=== PATIENT | male | born 1945 | race Caucasian/White ===

== ENCOUNTER 2019-12-08 03:07 | Inpatient (IN) | payer MEDICARE, OTHER ==
[~2019-12-08] VITALS: Ht 188 cm; Wt 111.8 kg
[2019-12-08] VITALS (19 sets, daily range): BP systolic 95–137; BP diastolic 38–66
[2019-12-08] MEDS ORDERED: IV NORMAL SALINE 1,000ML 2,460 ML IV SCH (03:37)
[2019-12-08] MEDS ORDERED: IPRATRPIUM/ALBUTEROL 0.5/2.5MG 3 ML NEBU. NEB ONE (03:45)
[2019-12-08] MEDS ORDERED: VANCOMYCIN PER PHARMACY MC PRN (03:45)
--- NOTE | 2019-12-08 03:45 | PHYS DOC ---
Adult General Chief Complaint Chief Complaint: DYSPNEA/RESPIRATOY DISTRESS HPI HPI Patient is a [74-year-old male brought in by ambulance from the nursing facility with a chief complaint of shortness of air essentially patient is been feeling short of breath and weaker throughout the day today has been feeling feverish he has been coughing mostly dry he had a [facility]up [facility] chest x-ray showed a slight right lower lobe infiltrate white blood cell count was 15,000 creatinine was 1.4 hemoglobin was 10.3 the lactic acid on there lab work that was measured in milligrams per deciliter was 12.3 that that was in their normal range. Urinalysis showed 0-3 white blood cells patient was requiring oxygen which is a new finding for him so he was referred to the emergency room for evaluation of note influenza a and B PCR as well as RSV PCR were negative at 10:30 PM on December 07, 2019. Past medical history coronary artery bypass surgery 2 years ago at he says he has congestive heart failure but he does not know the details of that. I do not have a recent echocardiogram I have asked staff to get a record of that from the local hospital. 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 Medications pending Review of Systems Review of Systems Constitutional: Cardiovascular: No additional information not addressed in HPI [] GI Neurologic: Denies headache, focal weakness or sensory changes [] Endocrine: Denies polyuria or polydipsia [] All other systems were reviewed and found to be within normal limits, except as documented in this note. Allergies Allergies Allergies Coded Allergies Type Severity Reaction Last Updated Verified atorvastatin Adverse Reaction Intermediate 12/08/19 Yes Physical Exam Physical Exam Constitutional: Well developed, well nourished, mildly ill-appearing chronically ill-appearing. HENT: Normocephalic, atraumatic, bilateral external ears normal, oropharynx dry t, no oral exudates, nose normal. [] Eyes: PERRLA, EOMI, conjunctiva normal, no discharge. [] Neck: Normal range of motion, no tenderness, supple, no stridor. [] Cardiovascular:Heart rate regular rhythm, no definite murmur [] Lungs & Thorax: Patient has faint wheezing throughout both lung amezquita as well as some rhonchi at the right lung base Abdomen: Bowel sounds normal, soft, no tenderness, no masses, no pulsatile m asses. [] Skin: Warm, dry, no erythema, no rash. [] Back: No tenderness, no CVA tenderness. [] Extremities: 1-2+ edema bilaterally there is some mild erythema of the right anterior baltazar. There is a fairly well-healing surgical incision with wet-to-dry dressing and some granulation tissue noted on the first 2 digits where there was a recent amputation. No obvious severe cellulitis possible mild cellulitis of the right lower extremity no crepitus no bullae Neurologic: Alert and oriented X 3, normal motor function, normal sensory function, no focal deficits noted. [] Psychologic: Affect normal, judgement normal, mood normal. [] Current Patient Data Vital Signs Vital Signs Date Time Temp Pulse Resp B/P (MAP) Pulse Ox O2 Delivery O2 Flow Rate FiO2 12/08/19 03:10 98.5 76 30 93/50 (64) 89 Room Air Initially pulse 68, 89 room air when I saw him he was 91% on 2 L blood pressure 93/50 concerning for the beginnings of sepsis. Patient did seem to respond to IV fluids after 1 L the blood pressure was 103 systolic with a map of 73. I looked at his heart with a bedside echo he did appear to have normal to slightly below normal squeeze. Very difficult exam hard to get a great look but ejection fraction seemed adequate for IV fluid resuscitation. EKG EKG [] EKG shows a sinus rhythm rate of 68 no acute ischemic changes noted interpreted by me at the time of the encounter. Radiology/Procedures Radiology/Procedures [] Impressions: my read infiltrate right lung base. Course & Med Decision Making Course & Med Decision Making Pertinent Labs and Imaging studies reviewed. (See chart for details) [] 74-year-old male multiple medical problems COPD since CABG congestive heart failure hypertension diabetes recent amputation of the right lower extremity presenting with shortness of breath cough wheezing hypoxia found to have pneumonia with leukocytosis on chest x-ray. Patient be treated for sepsis at this time ideal body weight fluids were ordered for BMI greater than 30. IV Zosyn was ordered reflex lactate and blood cultures as well. I performed a sepsis reassessment after the first liter of fluids the patient had good capillary refill similar respiratory effort slightly increased but stable compared to previous. Noted the troponin and the BNP this is likely related to myocardial dysfunction in the setting of sepsis. Patient's EKG was essentially unremarkable. Has definite obvious chest x-ray evidence of pneumonia as well as a fever leukocytosis and a cough flu swab was negative. Creatinine is up to 1.8. At this point time we will treat the pneumonia and go from there. 5 AM, PT rhythm changed heart rate up to 123 bp 87/58 , repeat ekg shows afib with rvr rate 124. according to [facility] no known previous hx of afib. However on further questioning patient states that he did have A. fib while he was in the hospital at . He also said that he got taken off her blood thinner he does not recall the name of it but apparently he had 10 or more blood transfusions a couple months ago when he was in the hospital they did not know for sure where he was losing blood from. His blood thinner was discontinued. I did perform a rectal examination in the ER tonight the rectal exam showed brown stool sent to the lab for testing. Right as nurse was pulling the diltiazem before she could even put it in the syringe patient reverted back to sinus rhythm with a blood pressure of 110/42 he actually said he starting to feel better. d/w zeb at 520 am admit to [facility] Disclaimer [facility] Disclaimer This electronic medical record was generated, in whole or in part, using a voice recognition dictation system. Departure Departure: Impression: Primary Impression: Pneumonia Additional Impression: Atrial fibrillation with RVR Disposition: ADMITTED INPATIENT Admitting Physician: Oscar Deal Condition: GUARDED Referrals: SOLOMON CLINE DO (PCP) Sepsis Assessment: Date and Time of Assessment Date: Dec 08, 2019 Time: 04:50 Vital Signs Vital Signs Vital Signs Date Time Temp Pulse Resp B/P (MAP) Pulse Ox O2 Delivery O2 Flow Rate FiO2 12/08/19 03:52 92 Nasal Cannula 3.0 12/08/19 03:10 98.5 76 30 93/50 (64) Respirations Respiratory Effort: Labored Respiratory Pattern: Tachypnea Cardiovascular Pulse Rhythm: Regular HEART: Nml rate, reg. rhythm Lung Sounds Breath Sounds: Rhochi Capillary Refill Capillary Refill: Rt Hand < 3 seconds Peripheral Pulse Pulse Location: Radial Pulse Strength: Normal (2+) Pulse Assessment Method: Monitor Integumentary Skin: Warm, Dry Skin Color: warm, dry Problem Qualifiers LIANNE KELLER MD Dec 08, 2019 03:45
[2019-12-08] MEDS ORDERED: PIPERACILLIN/TAZOBACTAM 4.5 GM in IV NORMAL SALINE 100ML 100 ML IV ONE (04:00)
--- NOTE | 2019-12-08 04:05 | EKG ---
[address] [address] Test Date: 2019-12-08 Test Time: 03:18:32 Pat Name: LORI BUSTOS Department: Room: Gender: M Sanitation Supervisor: : 1945 Requested By: LIANNE KELLER Order Number: [id number] Reading MD: Kaveh Thurman MD Measurements Intervals [place] Rate: 68 P: 59 MD: 224 QRS: 46 QRSD: 78 T: 74 QT: 458 QTc: 487 Interpretive Statements SINUS RHYTHM 1ST DEGREE AVB Electronically Signed On 12-08-2019 16:05:49 CDT by Kaveh Thurman MD
--- NOTE | 2019-12-08 04:06 | RAD ---
AP chest. HISTORY: Fever AP view was taken of the chest. Heart is upper normal in size with evidence of prior bypass. There are possible mild hazy infiltrate in the right lung base. PA and lateral views would be of benefit for better evaluation. IMPRESSION: 1. Mild hazy atelectasis or infiltrate right lung base. PA and lateral views of benefit for a better evaluation. Electronically signed by: Navid Sosa MD (12/08/2019 4:03 AM) [id number]
[2019-12-08] MEDS ORDERED: PIPERACILLIN/TAZOBACTAM 4.5 GM VIAL IV ONE ×2 (04:13→04:18)
[2019-12-08] MEDS ORDERED: IV NORMAL SALINE 100ML 100 ML ONE ×2 (04:13→04:18)
[2019-12-08 04:19] LABS: BASO % 0 % (0-3); EOS % 0 % (0-3); HEMATOCRIT 31.3 % (39.0-53.0); HEMOGLOBIN 9.9 g/dL (13.0-17.5); LYMPH # 2.4 x10^3/uL (1.0-4.8); LYMPH % 18 % (24-48); MEAN CORPUSCULAR HEMOGLOBIN 28 pg (25-35); MEAN CORPUSCULAR HGB CONC 32 g/dL (31-37); MEAN CORPUSCULAR VOLUME 88 fL (79-100); MONO # 1.2 x10^3/uL (0.0-1.1); MONO % 9 % (0-9); NEUT # 9.9 x10^3uL (1.8-7.7); NEUT % 73 % (31-73); PLATELET COUNT 229 x10^3/uL (140-400); RED BLOOD COUNT 3.55 x10^6/uL (4.30-5.70); RED CELL DISTRIBUTION WIDTH 16.6 % (11.5-14.5); WHITE BLOOD COUNT 13.5 x10^3/uL (4.0-11.0)
[2019-12-08 04:24] LABS: CALCIUM 7.6 mg/dL (8.5-10.1); CREATININE 1.8 mg/dL (0.7-1.3); GFR 37.1; POTASSIUM 3.8 mmol/L (3.5-5.1)
[2019-12-08] MEDS ORDERED: VANCOMYCIN 2 GM in IV NORMAL SALINE 500ML 500 ML IV ONE (04:30)
[2019-12-08] MEDS ORDERED: IV NORMAL SALINE 1,000ML 1,000 ML IV SCH (04:30)
[2019-12-08 04:39] LABS: ALBUMIN 2.4 g/dL (3.4-5.0); ALBUMIN/GLOBULIN RATIO 0.5 (1.0-1.7); TOTAL PROTEIN 6.9 g/dL (6.4-8.2)
[2019-12-08] MEDS ORDERED: DEXTROSE 50% 25 GM / 50ML DISP.SYRIN. IV ONE (04:45)
[2019-12-08] MEDS ORDERED: IV DEXTROSE 5 %-0.45 % NACL 1,000 ML IV ONE (04:45)
[2019-12-08] MEDS ORDERED: ASPIRIN 81 MG TAB.CHEW PO ONE (05:00)
[2019-12-08] MEDS ORDERED: APIXABAN 5 MG TABLET. PO STA (05:03)
[2019-12-08] MEDS ORDERED: dilTIAZem 25 MG/5 ML VIAL IVP ONE (05:15)
[2019-12-08] MEDS ORDERED: CALCIUM GLUCONATE 1,000 MG/10 ML VIAL IV ONE (05:15)
[2019-12-08] MEDS ORDERED: ACETAMINOPHEN 325 MG TABLET PO ONE (05:15)
[2019-12-08 05:40] LABS: FECAL OB PT POSITIVE (NEG)
[2019-12-08] MEDS ORDERED: POTA20TA4 PO (05:44)
[2019-12-08] MEDS ORDERED: INSU100I13 SQ (05:44)
[2019-12-08] MEDS ORDERED: ROSUVASTATIN CA10 MG PO (05:44)
[2019-12-08] MEDS ORDERED: ACET325T9 PO (05:44)
[2019-12-08] MEDS ORDERED: IPRA3AMP29 NEB (05:44)
[2019-12-08] MEDS ORDERED: ASPI-630 PO (05:44)
[2019-12-08] MEDS ORDERED: TIOTROPIUM INH (05:44)
[2019-12-08] MEDS ORDERED: GLIP5TAB10 PO (05:44)
[2019-12-08] MEDS ORDERED: FURO40TA4 PO (05:44)
[2019-12-08] MEDS ORDERED: CHOL200078 PO (05:44)
[2019-12-08] MEDS ORDERED: GABA600T7 PO (05:44)
[2019-12-08] MEDS ORDERED: BUDE10.27 IH (05:44)
[2019-12-08] MEDS ORDERED: IBUP-1673 PO (05:44)
[2019-12-08] MEDS ORDERED: FERR325T14 PO (05:44)
[2019-12-08] MEDS ORDERED: PANT40TA3 PO (05:44)
[2019-12-08] MEDS ORDERED: DOXY100C2 PO (05:44)
[2019-12-08] MEDS ORDERED: METO50TA6 PO (05:44)
[2019-12-08] MEDS ORDERED: IV NORMAL SALINE 500ML 500 ML ONE (06:35)
[2019-12-08] MEDS ORDERED: VANCOMYCIN 1 GM VIAL. ONE (06:36)
--- NOTE | 2019-12-08 07:30 | NUR ---
Pharmacy Vancomycin Dosing Note S:Consulted to monitor and dose vancomycin started 12/08/19. O:JULILORI is a 74 year old M with Pneumonia, . Height: 6 feet, 2 inches Weight: 111.5 kg [place] Body Weight: 82.20 Adjusted Body Weight: 93.92 Dosing Weight: Actual Other Antibiotics: ZOSYN IN ED LABS: Last BUN: 17 Last Creatinine: 1.8 Creatinine Clearance: 47.8 Last WBC: 13.5 Last Procalcitonin: Tmax (past 24 hours): Microbiology: I/O: Drug Levels: Last level: on at Last dose given at Vancomycin Dosing: Loading Dose: 2000 mg x1 Dosing Weight: Actual Target Trough: 15-20 A: Based on: PHYSICIAN REQUEST FOR PHARMACY TO DOSE P: 1. Begin Vancomycin 2000MG LOADING AND 1750 mg IV q24h 2. Follow up Trough level on 12/10/19 at 0630 3. Pharmacy will continue to monitor, follow and adjust therapy as needed. RADHA MALDONADO, 12/08/19 0730
[2019-12-08] MEDS ORDERED: PIP/TAZO PER PHARMACY MC PRN (08:45)
[2019-12-08] MEDS ORDERED: ONDANSETRON PF 4 MG/2 ML VIAL. IVP PRN (09:00)
[2019-12-08] MEDS: IPRATRPIUM/ALBUTEROL 0.5/2.5MG 3 ML NEBU. NEB SCH ×4 (09:30→20:58)
--- NOTE | 2019-12-08 11:35 | NUR ---
Patient was admitted from ED to ICU bed 1 at shift change this morning. Pt wound pictures were done along with admission. Pt SR mostly, occasionally flips in to afib in the 120s but converts back to SR on his own. Pt resting comfortably in bed. Refused breakfast.
[2019-12-08] MEDS: PIPERACILLIN/TAZOBACTAM 4.5 GM in IV NORMAL SALINE 50ML 50 ML IV SCH ×2 (13:02→19:51)
[2019-12-08] MEDS ORDERED: FUROSEMIDE 40 MG/4 ML VIAL IVP ONE (15:00)
[2019-12-08] MEDS ORDERED: DIGOXIN IV 500 MCG/2 ML AMPUL. IV ONE (15:15)
--- NOTE | 2019-12-08 15:30 | HP ---
ADMIT DATE: 12/08/2019 HISTORY OF PRESENT ILLNESS: The patient is a 74-year-old male patient, a resident at [facility], who was brought by ambulance this nursing facility with chief complaint of shortness of air. Essentially, the patient has been feeling short of breath and weaker throughout the day. He also had a fever and cough, mostly dry. He had workup already at [facility], has a chest x-ray, which showed that he has right lower lobe infiltrate. His white cell count was high at 15,000. Creatinine was 1.4. Hemoglobin was 10.3 and lactic acid on the lab work was measured in mg/dL, which is 12.3 that was in normal range. His urinalysis was unremarkable and he was requiring oxygen, which is a new finding for him, so he was referred to the Emergency Room for evaluation. His influenza B and respiratory syncytial virus by PCR was negative on 12/07/2019. He was evaluated and apparently was found to have pneumonia. He was also in atrial fibrillation with RVR. He was started on IV Zosyn and vancomycin and was admitted for further evaluation and treatment. He did receive a total of 2460 mL of normal saline as well as sepsis protocol and was treated with IV Zosyn and vancomycin and was started also on apixaban, was given 10 mg of diltiazem as a loading dose and was admitted to the ICU for further evaluation and treatment. When I questioned him, he denied any chest pain, but did complain obviously of shortness of breath and cough, which is mostly dry. Did complain of fever, although his temperature throughout stay in the Emergency Room, was only 98.7. PAST MEDICAL HISTORY: Significant for hypertension, hyperlipidemia, vitamin D deficiency, chronic obstructive pulmonary disease, iron deficiency anemia, chronic kidney disease stage 3, has also type 2 diabetes mellitus with diabetic peripheral neuropathy. PAST SURGICAL HISTORY: Significant for coronary artery bypass graft surgery, partial colectomy for colon cancer. He has also amputation of his toes of his right foot. FAMILY HISTORY: He has no brothers and sisters. His father at the age of 80 because of complication of bladder cancer. Mother at the age of 94 because of old age. She has beaten cancer twice according to him. SOCIAL HISTORY: He is , lives alone. He has no children. He is a former smoker, smoked for 50 years and smoked about 1.5-2 packs a day, quit 6 years ago. He does not drink alcohol or use recreational drugs. 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 REVIEW OF SYSTEMS: The patient stated that he has bilateral cataracts that did not require any surgical treatment, but has no diabetic retinopathy. Denied any earache, tinnitus or sensorineural deafness. Denied any nosebleeds, stuffy nose or postnasal drip. Denied any sore throat, sore tongue, toothache, hoarseness of voice or difficulty swallowing. Denied any nausea, vomiting, diarrhea or constipation. Denied any hematemesis, melena or hematochezia. Denied any dysuria, frequency or hematuria. Denied any chest pain. Did complain of shortness of breath and cough that is mostly dry. Did have fever and his temperature was up to 100.8 at the [facility]. PHYSICAL EXAMINATION: GENERAL: On arrival to the Emergency Room, there was no pallor, jaundice, cyanosis or thyromegaly. No jugular venous distention. No lower limb edema. VITAL SIGNS: His heart rate was 76, blood pressure was 93/50, temperature was 98.5, respiratory rate was 30 and oxygen saturation was 89% on room air. HEAD, EYES, EARS, NOSE AND THROAT: Showed normocephalic, atraumatic. NECK: Supple. HEART: Showed normal first and second heart sounds. No gallop or murmur. CHEST: Showed central trachea, equal bilateral expansion, air entry, vesicular breath sounds. He has crepitation mostly on the right side posteriorly. Scattered rhonchi. ABDOMEN: Distended, soft, nontender. No guarding or rigidity. No organomegaly. All hernial orifice intact. Bowel sounds normal. NEUROLOGIC: He is awake, alert, responding appropriately. All cranial nerves intact. EXTREMITIES: He moves upper extremities without difficulty. He has wounds on his right lower extremity covered with dressing. LABORATORY DATA: Showed a white cell count 13,500, hemoglobin 9.9, hematocrit 31, MCV 88 and platelet count 229,000. His chemistry showed a serum sodium 138, potassium 3.8, chloride 104, bicarbonate 21, anion gap of 13, BUN 17, creatinine 1.8, estimated GFR was 37 mL per minute. His glucose was 67, calcium was 7.6. Total bilirubin, AST, ALT were normal. Alkaline phosphatase was elevated. His beta natriuretic peptide was 6478. Total protein was 6.9, albumin was 3.4. His stool for occult blood was positive. His chest x-ray showed that the patient has mild hazy atelectasis or infiltrate in the right lung base and PA and lateral view of benefit for better evaluation, so the patient was treated with IV fluid for sepsis protocol, although his lactic acid was only 1.3. His troponin was also elevated at 0.104 ng/mL. He was given a total of almost 2.5 liters of fluid, received Zosyn and vancomycin as well as aspirin and apixaban together with calcium gluconate and a loading dose of diltiazem. MEDICATIONS: He is currently on following medications: He is on aspirin enteric coated 81 mg once a day. He is on Symbicort 80/4.5 two puffs twice a day, doxycycline 100 mg twice a day, ferrous sulfate 325 mg 2 times a day, furosemide 40 mg once a day. Gabapentin 300 mg, takes 2 capsules 3 times a day. Glipizide 5 mg, she takes half a tablet by mouth one time a day. Ibuprofen 400 mg every 6 hours. He is on Lantus insulin 20 units at bedtime, ipratropium bromide, albuterol sulfate 0.5-2.5 mg 3 mL by nebulizer every 4 hours. He is on metoprolol tartrate 50 mg twice a day, potassium chloride 20 mEq once a day, Protonix delayed release 40 mg once a day. He is on Crestor 10 mg at bedtime, ipratropium bromide 2 puffs once a day, Tylenol 650 mg every 4 hours as needed, vitamin D 1000 International Unit once a day. By the time he arrived to the ICU apparently he became very short of breath and we did discontinue his IV fluid. I discontinued his vancomycin and switched him to Zyvox. Given his impaired kidney function, we will treat him with IV Lasix and also add digoxin. We have consulted the dye machine tender. We will also arrange for him to have a 12-lead EKG. I also ordered x-ray of his right foot to make sure that there is no evidence of any infection in his bones . ROSELYN MARRERO MD DR: LEEANNA/maximino JOB#: [id number] / [id number]
--- NOTE | 2019-12-08 15:33 | NUR ---
Dr Deal wanted byrnes catheter placed, pt refused. Dr Deal notified, asked this RN to bladder scan pt. Bladder scan revealed 250 mL in bladder. Pt then voided 200 mL
--- NOTE | 2019-12-08 15:56 | RAD ---
Examination: FOOT RIGHT 2V History: Infected wound with possible osteomyelitis Comparison/Correlation: None Findings: AP and lateral views of the right foot were obtained by portable technique. Small calcaneal spur is present. Vascular calcifications are present. Amputation of the fourth and fifth digits is noted. Amputation of the distal one half of the fourth metatarsal bone and the distal three fourths of the fifth metatarsal bone noted. Within the amputation site, jameel are present. Punctate hyperdensities which may represent wound packing material is present. Impression: No bony destruction. Consider further evaluation with three-phase bone scintigraphy if osteomyelitis is persistent concern. Electronically signed by: Enio Greenfield MD (12/08/2019 3:53 PM) [id number]
[2019-12-08] MEDS ORDERED: AMIODARONE 150 MG in IV DEXTROSE 5% 100 ML IVP ONE (17:00)
--- NOTE | 2019-12-08 17:53 | EKG ---
[address] [address] Test Date: 2019-12-08 Test Time: 15:31:40 Pat Name: LORI BUSTOS Department: Room: [facility] 1 Gender: M [employer] Supervisor: : 1945 Requested By: ROSELYN MARRERO Order Number: [id number] Reading MD: Measurements Intervals [place] Rate: 116 P: HI: QRS: 64 QRSD: 74 T: 77 QT: 330 QTc: 458 Interpretive Statements ACCELERATED JUNCTIONAL RHYTHM LOW LIMB LEAD VOLTAGE ABNORMAL ECG RI6.02 No previous ECG available for comparison
[2019-12-08] MEDS: LACTOBACILLUS RHAMNOSUS GG 1 CAPSULE. PO SCH (20:39)
[2019-12-08] MEDS: AMIODARONE HCL 200 MG TABLET PO SCH (20:40)
--- NOTE | 2019-12-08 23:15 | PDOC2 ---
CARDIAC CONSULT DATE OF CONSULT Date Of Consult DATE: 12/08/19 TIME: 23:11 REASON FOR CONSULT Reason for Consult arrhythmia, HF REFERRING PHYSICIAN Referring Physician Say SOURCE Source: Patient HPI History of Present Illness 74 y.o male recently discharged from after R leg toe amp presented to the hospital with dyspnea. He had a normal echo at [facility] in Oct. Cardiology called now to rule out afib and heart failure He denies any angina, but does have cough and dyspnea. No syncope or palpitations. PAST MEDICAL HISTORY Cardiovascular: CAD, CHF, HTN, NH, hyperipidemia Pulmonary: COPD Endocrine: Diabetes PAST SURGICAL HISTORY Past Surgical History: CABG FAMILY HISTORY Family History NC SOCIAL HISTORY Smoke: No ALCOHOL: none Drugs: None Lives: Alone CURRENT MEDICATIONS Current Medications Current Medications Piperacillin Sod/ Tazobactam Sod 4.5 gm/Sodium Chloride 100 ml @ 200 mls/hr 1X ONCE IV Last administered on 12/08/19at 04:35; Start 12/08/19 at 04:00; Stop 12/08/19 at 04:29; Status DC Sodium Chloride 2,460 ml @ 2,460 mls/hr Q1H IV Last administered on 12/08/19at 04:04; Start 12/08/19 at 03:37; Stop 12/08/19 at 04:19; Status DC Vancomycin HCl (Vanco Per Pharmacy) 1 each PRN DAILY PRN MC SEE COMMENTS Last administered on 12/08/19at 07:30; Start 12/08/19 at 03:45; Stop 12/08/19 at 14:12; Status DC Albuterol/ Ipratropium (Duoneb) 3 ml 1X ONCE NEB Last administered on 12/08/19at 04:04; Start 12/08/19 at 03:45; Stop 12/08/19 at 04:19; Status DC Piperacillin Sod/ Tazobactam Sod (Zosyn) 4.5 gm STK-MED ONCE IV ; Start 12/08/19 at 04:13; Stop 12/08/19 at 04:13; Status DC Sodium Chloride 100 ml @ As Directed STK-MED ONCE .ROUTE ; Start 12/08/19 at 04:13; Stop 12/08/19 at 04:13; Status DC Piperacillin Sod/ Tazobactam Sod (Zosyn) 4.5 gm STK-MED ONCE IV ; Start 12/08/19 at 04:18; Stop 12/08/19 at 04:19; Status DC Sodium Chloride 100 ml @ As Directed STK-MED ONCE .ROUTE ; Start 12/08/19 at 04:18; Stop 12/08/19 at 04:19; Status DC Sodium Chloride 1,000 ml @ 2,460 mls/hr Q25M IV ; Start 12/08/19 at 04:30; Stop 12/08/19 at 04:37; Status DC Vancomycin HCl 2 gm/Sodium Chloride 500 ml @ 250 mls/hr 1X ONCE IV Last administered on 12/08/19at 07:16; Start 12/08/19 at 04:30; Stop 12/08/19 at 14:09; Status DC Dextrose/Sodium Chloride 1,000 ml @ 75 mls/hr 1X ONCE IV Last administered on 12/08/19at 05:16; Start 12/08/19 at 04:45; Stop 12/08/19 at 08:37; Status DC Dextrose (Dextrose 50%-Water Syringe) 25 gm 1X ONCE IV Last administered on 12/08/19at 04:45; Start 12/08/19 at 04:45; Stop 12/08/19 at 05:24; Status DC Aspirin (Children'S Aspirin) 324 mg 1X ONCE PO Last administered on 12/08/19at 05:00; Start 12/08/19 at 05:00; Stop 12/08/19 at 05:24; Status DC Acetaminophen (Tylenol) 650 mg 1X ONCE PO ; Start 12/08/19 at 05:15; Stop 12/08/19 at 05:24; Status DC Diltiazem HCl (Cardizem Iv Push) 10 mg 1X ONCE IVP ; Start 12/08/19 at 05:15; Stop 12/08/19 at 05:24; Status DC Apixaban (Eliquis) 10 mg 1X STAT PO ; Start 12/08/19 at 05:03; Stop 12/08/19 at 05:17; Status DC Calcium Gluconate 1,000 mg 1X ONCE IV Last administered on 12/08/19at 05:17; Start 12/08/19 at 05:15; Stop 12/08/19 at 05:24; Status DC Sodium Chloride 500 ml @ As Directed STK-MED ONCE .ROUTE ; Start 12/08/19 at 06:35; Stop 12/08/19 at 06:36; Status DC Vancomycin HCl (Vancomycin) 1 gm STK-MED ONCE .ROUTE ; Start 12/08/19 at 06:36; Stop 12/08/19 at 06:36; Status DC Vancomycin HCl 1.75 gm/Sodium Chloride 500 ml @ 250 mls/hr Q24H IV ; Start 12/09/19 at 07:00; Stop 12/08/19 at 14:09; Status DC Vancomycin HCl (Vancomycin Trough Level) 1 each 1X ONCE MC ; Start 12/10/19 at 06:30; Stop 12/08/19 at 14:10; Status DC Piperacillin Sod/ Tazobactam Sod (Zosyn Per Pharmacy) 1 each PRN DAILY PRN MC SEE COMMENTS; Start 12/08/19 at 08:45 Piperacillin Sod/ Tazobactam Sod 4.5 gm/Sodium Chloride 50 ml @ 100 mls/hr Q8H IV Last administered on 12/08/19at 19:51; Start 12/08/19 at 12:00 Ondansetron HCl (Zofran) 4 mg PRN Q8HRS PRN IVP NAUSEA/VOMITING; Start 12/08/19 at 09:00 Albuterol/ Ipratropium (Duoneb) 3 ml RTQID NEB Last administered on 12/08/19at 20:58; Start 12/08/19 at 09:00 Furosemide (Lasix) 40 mg 1X ONCE IVP Last administered on 12/08/19at 14:53; Start 12/08/19 at 15:00; Stop 12/08/19 at 15:01; Status DC Linezolid 300 ml @ 300 mls/hr Q12HR IV Last administered on 12/08/19at 20:40; Start 12/08/19 at 21:00 Digoxin (Lanoxin) 500 mcg 1X ONCE IV Last administered on 12/08/19at 14:53; Start 12/08/19 at 15:15; Stop 12/08/19 at 15:16; Status DC Lactobacillus Rhamnosus (Culturelle) 1 cap BID PO Last administered on 12/08/19at 20:39; Start 12/08/19 at 21:00 Amiodarone HCl 150 mg/Dextrose 103 ml @ 618 mls/hr 1X ONCE IVP Last administered on 12/08/19at 16:36; Start 12/08/19 at 17:00; Stop 12/08/19 at 17:09; Status DC Amiodarone HCl (Cordarone) 200 mg BID PO Last administered on 12/08/19at 20:40; Start 12/08/19 at 21:00 Active Scripts Active Reported Vitamin D3 (Cholecalciferol (Vitamin D3)) 2,000 Unit Tab.chew 2,000 Unit PO DAILY Tylenol (Acetaminophen) 325 Mg Tablet 650 Mg PO Q 6HRS PRN PRN [tiotropium brom mono] 2 Puff INH DAILY Rosuvastatin Calcium 10 Mg Tablet 10 Mg PO QHS Protonix (Pantoprazole Sodium) 40 Mg Tablet.dr 40 Mg PO DAILYAC Potassium Chloride (Potassium Chloride) 20 Meq Tablet.er 20 Meq PO DAILY Metoprolol Tartrate 50 Mg Tablet 50 Mg PO BID Duoneb 0.5-3(2.5) Mg/3 Ml (Albuterol/Ipratropium) 3 Ml Ampul.neb 3 Ml NEB Q4HRS Lantus Solostar (Insulin Glargine,Hum.rec.anlog) 100 Unit/1 Ml Insuln.pen 20 Unit SQ QHS Ibuprofen 200 Mg Tablet 200 Mg PO Q6HRS Glipizide 5 Mg Tablet 2.5 Mg PO DAILY Gabapentin 600 Mg Tablet 600 Mg PO TID Furosemide 40 Mg Tablet 40 Mg PO DAILY Ferrous Sulfate 325 Mg Tablet 325 Mg PO BID Doxycycline Hyclate 100 Mg Capsule 100 Mg PO BID 5 Days Budesonide-Formoterol 80-4.5 (Budesonide/Formoterol Fumarate) 10.2 Gm Hfa.aer.ad 10.2 Gm IH DAILY16 Aspirin 81 Mg Tab.chew 81 Mg PO DAILY ALLERGIES Allergies: Coded Allergies: atorvastatin (Verified Adverse Reaction, Intermediate, 12/08/19) generalized body aches ROS Review of Systems Negative for 07/12 systems reviewed unless noted above in HPI PHYSICAL EXAM General: Alert, Oriented X3, Cooperative HEENT: Atraumatic Lungs: Other (bilateral rhonchi) Heart: Regular rate Abdomen: Normal bowel sounds Extremities: No clubbing Skin: No rashes Neuro: Normal speech Psych/Mental Status: Mental status NL MUSCULOSKELETAL: No joint tenderness VITALS Vital Signs Vital Signs Date Time Temp Pulse Resp B/P (MAP) Pulse Ox O2 Delivery O2 Flow Rate FiO2 12/08/19 22:00 95 21 123/52 (75) 90 Nasal Cannula 3.0 12/08/19 20:59 98.3 LABS LABS Laboratory Tests Test 12/08/19 03:52 12/08/19 05:15 12/08/19 07:49 12/08/19 08:22 White Blood Count 13.5 x10^3/uL (4.0-11.0) Red Blood Count 3.55 x10^6/uL (4.30-5.70) Hemoglobin 9.9 g/dL (13.0-17.5) Hematocrit 31.3 % (39.0-53.0) Mean Corpuscular Volume 88 fL (79-100) Mean Corpuscular Hemoglobin 28 pg (25-35) Mean Corpuscular Hemoglobin Concent 32 g/dL (31-37) Red Cell Distribution Width 16.6 % (11.5-14.5) Platelet Count 229 x10^3/uL (140-400) Neutrophils (%) (Auto) 73 % (31-73) Lymphocytes (%) (Auto) 18 % (24-48) Monocytes (%) (Auto) 9 % (0-9) Eosinophils (%) (Auto) 0 % (0-3) Basophils (%) (Auto) 0 % (0-3) Neutrophils # (Auto) 9.9 x10^3uL (1.8-7.7) Lymphocytes # (Auto) 2.4 x10^3/uL (1.0-4.8) Monocytes # (Auto) 1.2 x10^3/uL (0.0-1.1) Eosinophils # (Auto) 0.0 x10^3/uL (0.0-0.7) Basophils # (Auto) 0.0 x10^3/uL (0.0-0.2) Sodium Level 138 mmol/L (136-145) Potassium Level 3.8 mmol/L (3.5-5.1) Chloride Level 104 mmol/L (98-107) Carbon Dioxide Level 21 mmol/L (21-32) Anion Gap 13 (6-14) Blood Urea Nitrogen 17 mg/dL (8-26) Creatinine 1.8 mg/dL (0.7-1.3) Estimated GFR (Cockcroft-Gault) 37.1 BUN/Creatinine Ratio 9 (6-20) Glucose Level 67 mg/dL (70-99) Lactic Acid Level 1.3 mmol/L (0.4-2.0) Calcium Level 7.6 mg/dL (8.5-10.1) Total Bilirubin 1.0 mg/dL (0.2-1.0) Aspartate Amino Transf (AST/SGOT) 32 U/L (15-37) Alanine Aminotransferase (ALT/SGPT) 14 U/L (16-63) Alkaline Phosphatase 130 U/L (46-116) Troponin I Quantitative 0.104 ng/mL (0-0.055) 0.079 ng/mL (0-0.055) GU-Hsp-U-Type Natriuretic Peptide 6478 pg/mL (0-124) Total Protein 6.9 g/dL (6.4-8.2) Albumin 2.4 g/dL (3.4-5.0) Albumin/Globulin Ratio 0.5 (1.0-1.7) Stool Occult Blood Positive (NEG) Glucose (Fingerstick) 70 mg/dL (70-99) Test 12/08/19 12:24 12/08/19 17:15 12/08/19 20:14 Glucose (Fingerstick) 92 mg/dL (70-99) 123 mg/dL (70-99) 96 mg/dL (70-99) IMAGES IMAGES Reviewed EKG EKG Reviewed ECHOCARDIOGRAM Echocardiogram Echo from [facility] reviewed. Normal EF ASSESSMENT/PLAN Assessment/Plan 1. Junctional tachycardia - No evidence of afib. 2. HTN 3. CAD s/p CABG 4. Resp failure possibly PNA and diastolic HF Plan for diuresis and initiation of amiodarone to help curtail the junctional rhythm/svt. Supportive care. thanks MARILYN CAGE MD Dec 08, 2019 23:15
[2019-12-08] MEDS: METOPROLOL TART IMMED RELEASE 25 MG TABLET PO SCH (23:28)
[2019-12-09] VITALS (20 sets, daily range): BP systolic 105–138; BP diastolic 35–85
[2019-12-09] MEDS: PIPERACILLIN/TAZOBACTAM 4.5 GM in IV NORMAL SALINE 50ML 50 ML IV SCH ×3 (03:43→19:22)
[2019-12-09] MEDS: IPRATRPIUM/ALBUTEROL 0.5/2.5MG 3 ML NEBU. NEB SCH ×4 (04:39→21:01)
--- NOTE | 2019-12-09 05:00 | NUR ---
Shift Note: Pt is a/o x4 (lethargic and weakness in bilateral LE), VSS (pt requires oxygen at 2 liters NC to maintain sats >92%), no c/o pain or n/v at this time, right foot dressing was changed during dayshift and remains CDI, Pt able to void in urinal, last BM 12/06, IV is saline locked other than for antibiotics as ordered.
[2019-12-09] MEDS ORDERED: VANCOMYCIN 1.75 GM in IV NORMAL SALINE 500ML 500 ML IV SCH (07:00)
[2019-12-09 07:57] LABS: BASO % 0 % (0-3); EOS # 0.3 x10^3/uL (0.0-0.7); EOS % 3 % (0-3); HEMATOCRIT 30.5 % (39.0-53.0); HEMOGLOBIN 9.6 g/dL (13.0-17.5); LYMPH # 1.2 x10^3/uL (1.0-4.8); LYMPH % 12 % (24-48); MEAN CORPUSCULAR HEMOGLOBIN 28 pg (25-35); MEAN CORPUSCULAR HGB CONC 32 g/dL (31-37); MEAN CORPUSCULAR VOLUME 88 fL (79-100); MONO # 1.2 x10^3/uL (0.0-1.1); MONO % 11 % (0-9); NEUT # 7.7 x10^3uL (1.8-7.7); NEUT % 74 % (31-73); PLATELET COUNT 205 x10^3/uL (140-400); RED BLOOD COUNT 3.48 x10^6/uL (4.30-5.70); RED CELL DISTRIBUTION WIDTH 16.2 % (11.5-14.5); WHITE BLOOD COUNT 10.4 x10^3/uL (4.0-11.0)
[2019-12-09 08:05] LABS: CALCIUM 7.7 mg/dL (8.5-10.1); CREATININE 1.7 mg/dL (0.7-1.3); GFR 39.6; POTASSIUM 3.8 mmol/L (3.5-5.1)
[2019-12-09] MEDS: LACTOBACILLUS RHAMNOSUS GG 1 CAPSULE. PO SCH ×2 (08:40→20:40)
[2019-12-09] MEDS: AMIODARONE HCL 200 MG TABLET PO SCH ×2 (08:41→20:40)
[2019-12-09] MEDS: METOPROLOL TART IMMED RELEASE 25 MG TABLET PO SCH ×2 (08:41→20:39)
--- NOTE | 2019-12-09 08:42 | NUR ---
Wound care Wound care consult for DFU's to right foot. Pt has DFU to right plantar great toe that is covered with dry slough, no signs of infection present. Dressed wound with xeroform and gauze. 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 There are several jameel present in thi-wound. Cleansed area and dressed with medihoney alginate, ABD and kerlix, recommend to change every 3 days. Pt was supposed to have follow up with Dr Bhatti, ortho surgeon at , tomorrow. RN stated she will call surgeon and let him know pt status. Pt has mild yeast rash to inner gluteal fold, applied nystatin powder mixed with calazime, RN will order nystatin powder if needed later today. No other wounds noted. Discussed possible follow up in [facility] if OK with surgeon and [place] wound nurse, who will have to send referral. WC will continue to follow for possible changes. Pt educated on PU prevention, pt verbalized he turns frequently and has WC cushion at [facility].
[2019-12-09] MEDS ORDERED: GABA600T7 PO (08:47)
--- NOTE | 2019-12-09 10:22 | PDOC ---
CARDIO Progress Notes Date & Time Date of Service DATE: 12/09/19 TIME: 10:18 Time of Evaluation 10:18 Subjective Notes still SOA this am Vitals Vitals Vital Signs Date Time Temp Pulse Resp B/P (MAP) Pulse Ox O2 Delivery O2 Flow Rate FiO2 12/09/19 08:41 78 109/63 12/09/19 08:02 Nasal Cannula 3.0 12/09/19 08:00 98.4 20 94 Weight Weight [ ] Input and Output I.O. Intake and Output 12/09/19 07:00 Intake Total 1960 ml Output Total 1000 ml Balance 960 ml Intake Oral 860 ml IV Total 1100 ml Output Urine Total 1000 ml # Voids 2 Laboratory Labs Laboratory Tests Test 12/08/19 03:52 12/08/19 05:15 12/08/19 07:49 12/08/19 08:22 White Blood Count 13.5 x10^3/uL (4.0-11.0) Red Blood Count 3.55 x10^6/uL (4.30-5.70) Hemoglobin 9.9 g/dL (13.0-17.5) Hematocrit 31.3 % (39.0-53.0) Mean Corpuscular Volume 88 fL (79-100) Mean Corpuscular Hemoglobin 28 pg (25-35) Mean Corpuscular Hemoglobin Concent 32 g/dL (31-37) Red Cell Distribution Width 16.6 % (11.5-14.5) Platelet Count 229 x10^3/uL (140-400) Neutrophils (%) (Auto) 73 % (31-73) Lymphocytes (%) (Auto) 18 % (24-48) Monocytes (%) (Auto) 9 % (0-9) Eosinophils (%) (Auto) 0 % (0-3) Basophils (%) (Auto) 0 % (0-3) Neutrophils # (Auto) 9.9 x10^3uL (1.8-7.7) Lymphocytes # (Auto) 2.4 x10^3/uL (1.0-4.8) Monocytes # (Auto) 1.2 x10^3/uL (0.0-1.1) Eosinophils # (Auto) 0.0 x10^3/uL (0.0-0.7) Basophils # (Auto) 0.0 x10^3/uL (0.0-0.2) Sodium Level 138 mmol/L (136-145) Potassium Level 3.8 mmol/L (3.5-5.1) Chloride Level 104 mmol/L (98-107) Carbon Dioxide Level 21 mmol/L (21-32) Anion Gap 13 (6-14) Blood Urea Nitrogen 17 mg/dL (8-26) Creatinine 1.8 mg/dL (0.7-1.3) Estimated GFR (Cockcroft-Gault) 37.1 BUN/Creatinine Ratio 9 (6-20) Glucose Level 67 mg/dL (70-99) Lactic Acid Level 1.3 mmol/L (0.4-2.0) Calcium Level 7.6 mg/dL (8.5-10.1) Total Bilirubin 1.0 mg/dL (0.2-1.0) Aspartate Amino Transf (AST/SGOT) 32 U/L (15-37) Alanine Aminotransferase (ALT/SGPT) 14 U/L (16-63) Alkaline Phosphatase 130 U/L (46-116) Troponin I Quantitative 0.104 ng/mL (0-0.055) 0.079 ng/mL (0-0.055) WV-Yfx-C-Type Natriuretic Peptide 6478 pg/mL (0-124) Total Protein 6.9 g/dL (6.4-8.2) Albumin 2.4 g/dL (3.4-5.0) Albumin/Globulin Ratio 0.5 (1.0-1.7) Stool Occult Blood Positive (NEG) Glucose (Fingerstick) 70 mg/dL (70-99) Test 12/08/19 12:24 12/08/19 17:15 12/08/19 20:14 12/09/19 07:49 Glucose (Fingerstick) 92 mg/dL (70-99) 123 mg/dL (70-99) 96 mg/dL (70-99) White Blood Count 10.4 x10^3/uL (4.0-11.0) Red Blood Count 3.48 x10^6/uL (4.30-5.70) Hemoglobin 9.6 g/dL (13.0-17.5) Hematocrit 30.5 % (39.0-53.0) Mean Corpuscular Volume 88 fL (79-100) Mean Corpuscular Hemoglobin 28 pg (25-35) Mean Corpuscular Hemoglobin Concent 32 g/dL (31-37) Red Cell Distribution Width 16.2 % (11.5-14.5) Platelet Count 205 x10^3/uL (140-400) Neutrophils (%) (Auto) 74 % (31-73) Lymphocytes (%) (Auto) 12 % (24-48) Monocytes (%) (Auto) 11 % (0-9) Eosinophils (%) (Auto) 3 % (0-3) Basophils (%) (Auto) 0 % (0-3) Neutrophils # (Auto) 7.7 x10^3uL (1.8-7.7) Lymphocytes # (Auto) 1.2 x10^3/uL (1.0-4.8) Monocytes # (Auto) 1.2 x10^3/uL (0.0-1.1) Eosinophils # (Auto) 0.3 x10^3/uL (0.0-0.7) Basophils # (Auto) 0.0 x10^3/uL (0.0-0.2) Sodium Level 136 mmol/L (136-145) Potassium Level 3.8 mmol/L (3.5-5.1) Chloride Level 104 mmol/L (98-107) Carbon Dioxide Level 22 mmol/L (21-32) Anion Gap 10 (6-14) Blood Urea Nitrogen 19 mg/dL (8-26) Creatinine 1.7 mg/dL (0.7-1.3) Estimated GFR (Cockcroft-Gault) 39.6 Glucose Level 99 mg/dL (70-99) Calcium Level 7.7 mg/dL (8.5-10.1) Microbiology Micro Microbiology 12/08/19 Blood Culture - Preliminary, Resulted NO GROWTH AFTER 1 DAY... Physical Exams HEENT: Neck Supple W Full Motion Chest: Symmetric Lungs: Other (diminished ) Heart: RRR (SR/ST with 1st AVB) Abdomen: Soft N/T Extremities: Other (trace bilateral LE edema, drsg intact to right foot ) Neurology: alert, oriented, follow commands Assessment Assessment 1. Junctional tachycardia - No evidence of afib. Amiodarone added for rhythm control. 2. Acute respiratory with with a/c diastolic CHF, AE COPD, and possible PNA. Echo at with preserved LV systolic function 3. Mild troponin elevation; peak 0.104. Most probably type II, demand ischemia secondary to above 3. CAD s/p CABG 4. Hypertension; controlled 5. Hyperlipidemia; statin 6. Diabetes, II 7. TITO vs CKD; Cr stable Recommendations Additional diuresis Continue Metoprolol, Amiodarone for rhythm, rate control Continue secondary prevention measures Supportive care APRIL JI APRN Dec 09, 2019 10:22
[2019-12-09] MEDS: FERROUS SULFATE 325 MG TABLET. PO SCH ×2 (10:30→20:39)
[2019-12-09] MEDS: glipiZIDE 5 MG TABLET PO SCH (10:30)
[2019-12-09] MEDS: ASPIRIN 81 MG TAB.CHEW PO SCH (10:30)
[2019-12-09] MEDS: CHOLECALCIFEROL (VITAMIN D3) 1,000 UNIT TABLET PO SCH (10:30)
[2019-12-09] MEDS: POTASSIUM CHLORIDE 20 MEQ TABLET.ER. PO SCH (10:30)
[2019-12-09] MEDS ORDERED: FUROSEMIDE 40 MG/4 ML VIAL IVP ONE (12:00)
[2019-12-09] MEDS ORDERED: POTASSIUM CHLORIDE 20 MEQ TABLET.ER. PO ONE (12:00)
[2019-12-09] MEDS ORDERED: IBUPROFEN 200 MG TABLET PO SCH ×2 (12:00)
--- NOTE | 2019-12-09 15:33 | NUR ---
Notified pt's orthopedic surgeon about wound care recommendations and to cancel pt's appointment with tomorrow 12/10/2019 per pt's request. Spoke with Bibi, surgeon's national secretary. Ennice stated she would notify of wound updates and care plans. [employer] also stated they would call back tomorrow, 12/10/2019. Will continue to monitor and assess as necessary.
--- NOTE | 2019-12-09 15:40 | NUR ---
Pt told staff this morning that he has had loose stool for the past 10 days. Ordered stat C.Difficile testing for loose stool. Specimen has been collected, now awaiting results.
[2019-12-09] MEDS: FUROSEMIDE 40 MG/4 ML VIAL IVP SCH (16:06)
--- NOTE | 2019-12-09 16:36 | PN ---
DATE: 12/09/2019 SUBJECTIVE: The patient is sitting at the edge of the bed, clearly tachypneic. Denied, however, any chest pain, denied any chills, rigors or fever. PHYSICAL EXAMINATION: GENERAL: When I examined him, he looked pale, no jaundice, cyanosis or thyromegaly. No jugular venous distention or limb edema. VITAL SIGNS: His heart rate was 83, blood pressure was 118/48, temperature was 98, respiratory rate 20, and oxygen saturation was 90% on 2 liters of oxygen. HEAD, EYES, EARS, NOSE AND THROAT: Showed normocephalic, atraumatic. NECK: Supple. HEART: Showed normal first and second heart sounds. No gallop, rub or murmur. CHEST: Shows central trachea, equal bilateral expansion, air entry, vesicular breath sounds with crepitation mostly in the right side posteriorly. I could not appreciate any rhonchi. ABDOMEN: Distended, soft, nontender. NEUROLOGIC: He is awake, alert, responding appropriately. All cranial nerves are intact. He moves extremities without difficulty though he is extremely short of breath on exertion. His intake over the last 24 hours was 1100, no output was recorded. LABORATORY DATA: As of this morning showed a serum sodium 136, potassium 3.8, chloride 104, bicarbonate 22, anion gap of 10, BUN 19, creatinine 1.7, estimated GFR was 39 mL per minute. His glucose was 99, calcium was 7.7. His white cell count was 10,400, hemoglobin 9.6, hematocrit 30.5, MCV 88 and platelet count 205,000. His stool for occult blood was positive. He apparently also having recurrent bouts of diarrhea, so stool will be sent for C. diff toxin. So far, his blood cultures showed no growth after one day. ASSESSMENT: 1. Junctional tachycardia, no evidence of atrial fibrillation. The patient was started on amiodarone for rhythm control. 2. Acute respiratory failure secondary to a) acute on chronic diastolic congestive heart failure, b) chronic obstructive pulmonary disease exacerbation. 3. Right lower lobe pneumonia. Apparently, his echocardiogram at [facility] showed preserved left ventricular systolic function. 4. Mild elevation of troponin peaked at 0.104. Most probably type 2 demand ischemia. 5. Coronary artery disease, status post coronary artery bypass graft. 6. Hypertension, well controlled. 7. Hyperlipidemia, on statins. 8. Type 2 diabetes mellitus, seems to be well controlled. 9. Acute versus chronic kidney disease. Creatinine showed slight improvement. PLAN: To continue with IV antibiotic. Continue with IV Lasix. ROSELYN MARRERO MD DR: LEEANNA/maximino JOB#: [id number] / [id number]
--- NOTE | 2019-12-09 16:58 | NUR ---
Pt SOB when ambulating to bedside commode. Educated pt on the possibility of placing a catheter. Pt denied byrnes catheter placement stating that "they hurt and they are uncomfortable." Will continue to monitor and assess as necessary.
--- NOTE | 2019-12-09 18:03 | RAD ---
BONE SCAN 3 PHASE Clinical Indication: Right foot pain. Surgery 8 weeks ago to remove fourth and fifth toes. Comparison: Right foot, 2 views, prior day. TECHNIQUE: Patient is injected with 20 mCi of technetium 99m MDP. 6 second per frame angiographic phase images of the feet acquired. Plantar blood pool images then obtained. Plantar and right and left lateral static images acquired after routine delay. Findings: There is hyperemia of the right midfoot on angiographic images. There is persistent increased tracer uptake in this location on the immediate static likely localizing to the second and third metatarsal region. There is persistent uptake in this location on the delay image. There is also increased tracer uptake of the lateral midfoot. IMPRESSION: 1. There is increased tracer uptake on all 3 phases of the central right mid foot likely in the region of the second and third metatarsals. Findings suspicious for osteomyelitis. 2. There is increased tracer uptake only on the delay phase localizing to the residual fourth and fifth metatarsals. This uptake may be postsurgical. Electronically signed by: Leonard Lassiter MD (12/09/2019 6:00 PM) [id number]
[2019-12-09] MEDS: GABAPENTIN 300 MG CAPSULE. PO SCH (20:39)
[2019-12-09] MEDS: LINEZOLID 600 MG TABLET PO SCH (20:41)
[2019-12-09] MEDS ORDERED: ATORVASTATIN CALCIUM 20 MG TABLET PO SCH (21:00)
[2019-12-10] VITALS (20 sets, daily range): BP systolic 94–145; BP diastolic 37–77
[2019-12-10] MEDS: PIPERACILLIN/TAZOBACTAM 4.5 GM in IV NORMAL SALINE 50ML 50 ML IV SCH ×3 (04:37→20:01)
[2019-12-10] MEDS: IPRATRPIUM/ALBUTEROL 0.5/2.5MG 3 ML NEBU. NEB SCH ×4 (05:00→20:29)
--- NOTE | 2019-12-10 06:07 | NUR ---
Shift Note: Pt is a/ox4, VSS, pt requires 4 liters O2, increased SOA w/activity, pt had no loose stools over the night, CDiff did come back positive, physician notified, orders placed. Pt is allergic to lipitor but was ordered (will have dayshift discuss w/physician). Addendum: 12/10/19 at 0615 by ESTHER YUEN RN Shift Note: Pt is a/ox4, HR is elevated this am (Metoprolol given early, will monitor), pt requires 4 liters O2, increased SOA w/activity, pt had no loose stools over the night, CDiff did come back positive (contact plus isolation initiated), physician notified, orders placed. Pt is allergic to lipitor but was ordered (will have dayshift discuss w/physician).
[2019-12-10] MEDS: METOPROLOL TART IMMED RELEASE 25 MG TABLET PO SCH ×2 (06:12→20:50)
[2019-12-10 06:23] LABS: HEMATOCRIT 32.1 % (39.0-53.0); HEMOGLOBIN 10.1 g/dL (13.0-17.5); RED BLOOD COUNT 3.65 x10^6/uL (4.30-5.70); RED CELL DISTRIBUTION WIDTH 16.1 % (11.5-14.5); WHITE BLOOD COUNT 12.6 x10^3/uL (4.0-11.0)
[2019-12-10 06:35] LABS: ALBUMIN/GLOBULIN RATIO 0.4 (1.0-1.7); CALCIUM 7.9 mg/dL (8.5-10.1); CREATININE 1.7 mg/dL (0.7-1.3); GFR 39.6; POTASSIUM 3.6 mmol/L (3.5-5.1); TOTAL BILIRUBIN 0.9 mg/dL (0.2-1.0); TOTAL PROTEIN 6.7 g/dL (6.4-8.2)
[2019-12-10] MEDS: LACTOBACILLUS RHAMNOSUS GG 1 CAPSULE. PO SCH ×2 (07:56→20:50)
[2019-12-10] MEDS: AMIODARONE HCL 200 MG TABLET PO SCH ×2 (07:56→20:50)
[2019-12-10] MEDS: ASPIRIN 81 MG TAB.CHEW PO SCH (07:57)
[2019-12-10] MEDS: CHOLECALCIFEROL (VITAMIN D3) 1,000 UNIT TABLET PO SCH (07:57)
[2019-12-10] MEDS: glipiZIDE 5 MG TABLET PO SCH (07:57)
[2019-12-10] MEDS: GABAPENTIN 300 MG CAPSULE. PO SCH ×3 (07:57→20:51)
[2019-12-10] MEDS: LINEZOLID 600 MG TABLET PO SCH ×2 (07:58→20:51)
[2019-12-10] MEDS: VANCOMYCIN 125 MG/2.5 ML ORAL SOLUTION. PO SCH ×4 (07:58→20:51)
[2019-12-10] MEDS: POTASSIUM CHLORIDE 20 MEQ TABLET.ER. PO SCH (07:58)
[2019-12-10] MEDS: FERROUS SULFATE 325 MG TABLET. PO SCH ×2 (07:59→20:51)
[2019-12-10] MEDS: FUROSEMIDE 40 MG/4 ML VIAL IVP SCH (08:00)
--- NOTE | 2019-12-10 14:46 | PN ---
DATE: 12/10/2019 SUBJECTIVE: The patient is resting, slightly propped up in bed, in no apparent distress. He is definitely much improved today. He is not huffing and puffing, states that he has slept very well overnight. He did have multiple loose bowel movements yesterday and his stool came back positive for C. diff, has not had any bowel movement today. The patient is unhappy that the dressing changes done every other day as his orthopedic surgeon removed the wound VAC and wanted his wound to be dressed twice a day. PHYSICAL EXAMINATION: GENERAL: When I examined him today, he looked pale, but no jaundice, cyanosis or thyromegaly. No jugular venous distention. No limb edema. VITAL SIGNS: His heart rate was 69, blood pressure was 110/37. His temperature was 98.1, respiratory rate was 16, and oxygen saturation was 94% on 4 liters of oxygen. HEAD, EYES, EARS, NOSE AND THROAT: Showed normocephalic, atraumatic. NECK: Supple. HEART: Showed normal first and second heart sounds. No gallop or murmur. CHEST: Clear to auscultation. No crepitation or rhonchi. ABDOMEN: Distended, soft, nontender. No guarding or rigidity. No organomegaly. All hernial orifice intact. Bowel sounds normal. NEUROLOGIC: He was definitely more awake, alert, responding appropriately. All cranial nerves are intact. He moves extremities without difficulty. Right foot wound is open with necrotic tissue, covered with dressing. His intake over the last 24 hours was 2000, output was 1000. LABORATORY DATA: As of this morning, his white cell count was 12,600, hemoglobin 10, hematocrit 32, MCV 88 and platelet count 232,000. His serum sodium was 138, potassium 3.6, chloride 102, bicarbonate 25, anion gap of 11, BUN 20, creatinine 1.7, estimated GFR was 39 mL per minute, his glucose was 82, calcium was 7.9. Total bilirubin, AST, ALT, alkaline phosphatase were normal. Total protein was 6.7, albumin was 2. His stool for occult blood was positive; however, his stool for Clostridium diff toxins also positive. So far, his blood culture had shown no growth after 2 days. We did actually order a bone scan yesterday, which showed that there is increased tracer uptake in all 3 phases of the central right mid foot, likely in the region of the second and third metatarsal. Findings are suspicious for osteomyelitis. There is increased tracer uptake only in the delayed phase or localizing to the residual fourth and fifth metatarsal this uptake may be postsurgical. ASSESSMENT: 1. Junctional tachycardia with no evidence of atrial fibrillation. The patient was started on amiodarone and his heart rate is well controlled. 2. Acute respiratory failure secondary to: A. Acute on chronic diastolic congestive heart failure. B. Chronic obstructive pulmonary disease exacerbation. C. Right lower lobe pneumonia and apparently has an echocardiogram done at [facility] recently showing preserved left ventricular systolic function. 3. Mild elevation of troponin peaked at 0.1004 most probably type 2 demand ischemia. 4. He has coronary artery disease, status post coronary artery bypass graft surgery. 5. Hypertension, well controlled. 6. Hyperlipidemia, on statin. 7. Type 2 diabetes mellitus, seems to be well controlled. 8. Acute on chronic kidney injury. His creatinine has stabilized around 1.7. PLAN: Plan is to continue with IV antibiotic in the form of vancomycin and Zosyn. Continue with oral vancomycin. Continue with all other medications. Continue to monitor his blood sugars. Continue obviously with amiodarone to control his heart rate and lactobacillus for his C. diff. ROSELYN MARRERO MD DR: LEEANNA/maximino JOB#: [id number] / [id number]
--- NOTE | 2019-12-10 19:28 | PDOC ---
SUBJECTIVE: Patient seen and examined OBJECTIVE: Problems: Problems Medical Problems: (1) Atrial fibrillation with RVR Status: Acute (2) Pneumonia Status: Acute 1. Now sinus rhythm. Rate OK. Continue present treatment. 2. Acute respiratory with with a/c diastolic CHF, AE COPD, and possible PNA. Echo at with preserved LV systolic function 3. Mild troponin elevation; peak 0.104. Most probably type II, demand ischemia secondary to above 3. CAD s/p CABG 4. Hypertension; controlled 5. Hyperlipidemia; statin 6. Diabetes, II 7. TITO vs CKD; Cr stable Recommendations Additional diuresis Continue Metoprolol, Amiodarone for rhythm, rate control Continue secondary prevention measures Supportive care Vital Signs/I&O: Vital Signs Date Time Temp Pulse Resp B/P (MAP) Pulse Ox O2 Delivery O2 Flow Rate FiO2 12/10/19 19:00 74 16 144/63 (90) 93 Nasal Cannula 4.0 12/10/19 14:00 98.4 I & O 12/09/19 12/09/19 12/10/19 15:00 23:00 07:00 Intake Total 100 ml 50 ml 350 ml Output Total 400 ml 1000 ml 300 ml Balance -300 ml -950 ml 50 ml Labs: Laboratory Tests Test 12/10/19 05:45 White Blood Count 12.6 x10^3/uL (4.0-11.0) H Red Blood Count 3.65 x10^6/uL (4.30-5.70) L Hemoglobin 10.1 g/dL (13.0-17.5) L Hematocrit 32.1 % (39.0-53.0) L Mean Corpuscular Volume 88 fL (79-100) Mean Corpuscular Hemoglobin 28 pg (25-35) Mean Corpuscular Hemoglobin Concent 32 g/dL (31-37) Red Cell Distribution Width 16.1 % (11.5-14.5) H Platelet Count 232 x10^3/uL (140-400) Sodium Level 138 mmol/L (136-145) Potassium Level 3.6 mmol/L (3.5-5.1) Chloride Level 102 mmol/L (98-107) Carbon Dioxide Level 25 mmol/L (21-32) Anion Gap 11 (6-14) Blood Urea Nitrogen 20 mg/dL (8-26) Creatinine 1.7 mg/dL (0.7-1.3) H Estimated GFR (Cockcroft-Gault) 39.6 BUN/Creatinine Ratio 12 (6-20) Glucose Level 82 mg/dL (70-99) Calcium Level 7.9 mg/dL (8.5-10.1) L Total Bilirubin 0.9 mg/dL (0.2-1.0) Aspartate Amino Transferase (AST) 19 U/L (15-37) Alanine Aminotransferase (ALT) 11 U/L (16-63) L Alkaline Phosphatase 109 U/L (46-116) Total Protein 6.7 g/dL (6.4-8.2) Albumin 2.0 g/dL (3.4-5.0) L Albumin/Globulin Ratio 0.4 (1.0-1.7) L Physical Exam: Chest. Mildly decreased breath sounds. CV. Regular rate and rhythm. Abdomen. Soft. ASSESSMENT: As above. ANDREINA VEGA MD Dec 10, 2019 19:28
[2019-12-11] VITALS (10 sets, daily range): BP systolic 102–144; BP diastolic 44–84
[2019-12-11] MEDS: PIPERACILLIN/TAZOBACTAM 4.5 GM in IV NORMAL SALINE 50ML 50 ML IV SCH ×3 (04:00→20:04)
[2019-12-11] MEDS: IPRATRPIUM/ALBUTEROL 0.5/2.5MG 3 ML NEBU. NEB SCH ×3 (08:00→21:59)
[2019-12-11 08:29] LABS: ALBUMIN 1.9 g/dL (3.4-5.0); ALBUMIN/GLOBULIN RATIO 0.4 (1.0-1.7); CREATININE 1.7 mg/dL (0.7-1.3); GFR 39.6; POTASSIUM 3.2 mmol/L (3.5-5.1); TOTAL BILIRUBIN 0.7 mg/dL (0.2-1.0); TOTAL PROTEIN 6.5 g/dL (6.4-8.2)
[2019-12-11] MEDS: AMIODARONE HCL 200 MG TABLET PO SCH ×2 (09:00→20:44)
[2019-12-11] MEDS: LINEZOLID 600 MG TABLET PO SCH ×2 (09:00→20:44)
[2019-12-11] MEDS: POTASSIUM CHLORIDE 20 MEQ TABLET.ER. PO SCH ×2 (09:00→20:44)
[2019-12-11] MEDS: FUROSEMIDE 40 MG/4 ML VIAL IVP SCH (09:00)
[2019-12-11] MEDS: GABAPENTIN 300 MG CAPSULE. PO SCH ×3 (09:00→20:44)
[2019-12-11] MEDS: VANCOMYCIN 125 MG/2.5 ML ORAL SOLUTION. PO SCH ×4 (09:00→20:43)
[2019-12-11] MEDS: LACTOBACILLUS RHAMNOSUS GG 1 CAPSULE. PO SCH ×2 (09:00→20:44)
[2019-12-11] MEDS: FERROUS SULFATE 325 MG TABLET. PO SCH ×2 (09:00→20:44)
[2019-12-11] MEDS: ASPIRIN 81 MG TAB.CHEW PO SCH (09:00)
[2019-12-11] MEDS: METOPROLOL TART IMMED RELEASE 25 MG TABLET PO SCH ×2 (09:00→20:44)
[2019-12-11] MEDS: glipiZIDE 5 MG TABLET PO SCH (09:00)
[2019-12-11] MEDS: CHOLECALCIFEROL (VITAMIN D3) 1,000 UNIT TABLET PO SCH (09:00)
[2019-12-11] MEDS ORDERED: POTASSIUM CHLORIDE 20 MEQ TABLET.ER. PO ONE ×4 (11:00→13:15)
[2019-12-11] MEDS ORDERED: POTASSIUM CHLORIDE 20 MEQ TABLET.ER. PO SCH (11:00)
[2019-12-11 14:13] LABS: HEMATOCRIT 30.7 % (39.0-53.0); HEMOGLOBIN 9.7 g/dL (13.0-17.5); RED BLOOD COUNT 3.49 x10^6/uL (4.30-5.70); WHITE BLOOD COUNT 11.7 x10^3/uL (4.0-11.0)
[2019-12-11 14:14] LABS: RED CELL DISTRIBUTION WIDTH 16.1 % (11.5-14.5)
--- NOTE | 2019-12-11 20:43 | PN ---
DATE: 12/11/2019 SUBJECTIVE: The patient is resting, slightly propped up in bed, in no apparent distress. On questioning him, he denied any chest pain, shortness of breath, orthopnea, paroxysmal nocturnal dyspnea. His heart rate seems to be much better controlled. He is afebrile and his white cell count has normalized. PHYSICAL EXAMINATION: GENERAL: When I saw him this morning, he looked somewhat pale, but no jaundice, cyanosis or thyromegaly. No jugular venous distention or limb edema. VITAL SIGNS: His heart rate was 91, blood pressure was 141/63, temperature was 98.4, respiratory rate was 22 and oxygen saturation was 93% on 4 liters of oxygen. HEAD, EYES, EARS, NOSE AND THROAT: Showed normocephalic, atraumatic. NECK: Supple. HEART: Showed normal first and second heart sounds. No gallop, rub or murmur. CHEST: Showed central trachea, equal bilateral expansion, air entry, vesicular sounds with crepitation mostly in the right side posteriorly. ABDOMEN: Slightly distended, soft, nontender. NEUROLOGIC: He is awake, alert, responding appropriately. All cranial nerves are intact. He moves all extremities without difficulty. He has wounds. The outer aspect of the right foot is covered with dressing. His intake over the last 24 hours was 500, output was 1700. LABORATORY DATA: As of this morning, his serum sodium was 139, potassium 3.2, chloride 103, bicarbonate 25, anion gap of 11, BUN 20, creatinine 1.7, estimated GFR was 39 mL per minute. His glucose was 57, calcium was 8. Total bilirubin, AST, ALT, alkaline phosphatase were normal. Total protein was 6.5, albumin was 1.9. His stool for occult blood was positive and his Clostridium difficile toxin positive. ASSESSMENT: 1. Junctional tachycardia with no evidence of atrial fibrillation. The patient was started on amiodarone. His heart rate is well controlled. 2. Acute respiratory failure secondary to acute on chronic diastolic congestive heart failure. A. Chronic obstructive pulmonary disease exacerbation. B. Right lower lobe pneumonia. 3. He apparently has had an echocardiogram done at [facility] recently showing preserved left ventricular systolic function. 4. He has mild elevation of troponin peaked at 0.104. Most probably type 2 demand ischemia. 5. He has coronary artery disease, status post coronary artery bypass graft surgery. 6. Hypertension, well controlled. 7. Hyperlipidemia, on statin. 8. Type 2 diabetes, seems to be well controlled. 9. Acute on chronic kidney injury. His creatinine has stabilized around 1.7 mg/dL. PLAN: My plan is to continue antibiotic. He has also hypokalemia with serum potassium of 3.2 and therefore we will increase his potassium supplement. Meanwhile, we will continue with wound care and hopefully transfer the patient next week to [facility]. ROSELYN MARRERO MD DR: LEEANNA/maximino JOB#: [id number] / [id number]
[2019-12-12] MEDS: PIPERACILLIN/TAZOBACTAM 4.5 GM in IV NORMAL SALINE 50ML 50 ML IV SCH ×3 (03:41→21:49)
[2019-12-12] MEDS: IPRATRPIUM/ALBUTEROL 0.5/2.5MG 3 ML NEBU. NEB SCH ×4 (05:47→21:24)
[2019-12-12 06:47] LABS: HEMATOCRIT 30.6 % (39.0-53.0); HEMOGLOBIN 9.7 g/dL (13.0-17.5); RED BLOOD COUNT 3.49 x10^6/uL (4.30-5.70); RED CELL DISTRIBUTION WIDTH 16.2 % (11.5-14.5); WHITE BLOOD COUNT 12.8 x10^3/uL (4.0-11.0)
[2019-12-12 07:00] VITALS: BP 102/34
[2019-12-12 07:01] LABS: CREATININE 1.6 mg/dL (0.7-1.3); GFR 42.5; MAGNESIUM 1.7 mg/dL (1.8-2.4); POTASSIUM 3.8 mmol/L (3.5-5.1)
[2019-12-12] MEDS: FERROUS SULFATE 325 MG TABLET. PO SCH ×2 (08:08→21:49)
[2019-12-12] MEDS: glipiZIDE 5 MG TABLET PO SCH (08:09)
[2019-12-12] MEDS: AMIODARONE HCL 200 MG TABLET PO SCH ×2 (08:10→21:47)
[2019-12-12] MEDS: CHOLECALCIFEROL (VITAMIN D3) 1,000 UNIT TABLET PO SCH (08:10)
[2019-12-12] MEDS: LACTOBACILLUS RHAMNOSUS GG 1 CAPSULE. PO SCH ×2 (08:10→21:48)
[2019-12-12] MEDS: METOPROLOL TART IMMED RELEASE 25 MG TABLET PO SCH ×2 (08:11→21:48)
[2019-12-12] MEDS: ASPIRIN 81 MG TAB.CHEW PO SCH (08:11)
[2019-12-12] MEDS: GABAPENTIN 300 MG CAPSULE. PO SCH ×3 (08:11→21:48)
[2019-12-12] MEDS: POTASSIUM CHLORIDE 20 MEQ TABLET.ER. PO SCH ×2 (08:12→21:48)
[2019-12-12] MEDS: VANCOMYCIN 125 MG/2.5 ML ORAL SOLUTION. PO SCH ×4 (08:14→21:49)
[2019-12-12] MEDS: LINEZOLID 600 MG TABLET PO SCH ×2 (08:14→21:49)
[2019-12-12] MEDS: FUROSEMIDE 40 MG/4 ML VIAL IVP SCH (09:22)
[2019-12-12 11:00] VITALS: BP 122/47
--- NOTE | 2019-12-12 13:52 | PDOC ---
PROGRESS NOTES Diagnosis Problem Problems Medical Problems: (1) Atrial fibrillation with RVR Status: Acute (2) Pneumonia Status: Acute Assessment Problems Medical Problems: (1) Atrial fibrillation with RVR Status: Acute (2) Pneumonia Status: Acute 1. Atrial fibrillation. Now sinus rhythm. Rate OK. Continue present treatment. 2. Pneumonia and respiratory with with a/c diastolic CHF, AE COPD. Echo at with preserved LV systolic function. Patient is improving on present medications. 3. Mild troponin elevation; peak 0.104. Most probably type II, demand ischemia secondary to above 3. CAD s/p CABG 4. Hypertension; controlled 5. Hyperlipidemia; statin 6. Diabetes, II 7. TITO vs CKD; Cr stable PLAN As above. Objective Vital Signs Date Time Temp Pulse Resp B/P (MAP) Pulse Ox O2 Delivery O2 Flow Rate FiO2 12/12/19 11:39 97 Nasal Cannula 2.0 12/12/19 11:00 66 18 122/47 (72) 12/11/19 23:00 97.8 Intake and Output 12/12/19 07:00 Intake Total 870 ml Output Total 1100 ml Balance -230 ml Intake Oral 720 ml IV Total 150 ml Output Urine Total 1100 ml # Bowel Movements 2 Physical Exam Chest. Mildly decreased breath sounds. CV. regular rhythm Abdomen. Soft. Review of Relevant I have reviewed the following items naga (where applicable) has been applied. Labs Laboratory Tests Test 12/11/19 06:00 12/11/19 06:22 12/12/19 06:05 Sodium Level 139 mmol/L (136-145) 140 mmol/L (136-145) Potassium Level 3.2 mmol/L (3.5-5.1) 3.8 mmol/L (3.5-5.1) Chloride Level 103 mmol/L (98-107) 104 mmol/L (98-107) Carbon Dioxide Level 25 mmol/L (21-32) 26 mmol/L (21-32) Anion Gap 11 (6-14) 10 (6-14) Blood Urea Nitrogen 20 mg/dL (8-26) 17 mg/dL (8-26) Creatinine 1.7 mg/dL (0.7-1.3) 1.6 mg/dL (0.7-1.3) Estimated GFR (Cockcroft-Gault) 39.6 42.5 BUN/Creatinine Ratio 12 (6-20) Glucose Level 57 mg/dL (70-99) 50 mg/dL (70-99) Calcium Level 8.0 mg/dL (8.5-10.1) 8.0 mg/dL (8.5-10.1) Total Bilirubin 0.7 mg/dL (0.2-1.0) Aspartate Amino Transf (AST/SGOT) 26 U/L (15-37) Alanine Aminotransferase (ALT/SGPT) 11 U/L (16-63) Alkaline Phosphatase 114 U/L (46-116) Total Protein 6.5 g/dL (6.4-8.2) Albumin 1.9 g/dL (3.4-5.0) Albumin/Globulin Ratio 0.4 (1.0-1.7) White Blood Count 11.7 x10^3/uL (4.0-11.0) 12.8 x10^3/uL (4.0-11.0) Red Blood Count 3.49 x10^6/uL (4.30-5.70) 3.49 x10^6/uL (4.30-5.70) Hemoglobin 9.7 g/dL (13.0-17.5) 9.7 g/dL (13.0-17.5) Hematocrit 30.7 % (39.0-53.0) 30.6 % (39.0-53.0) Mean Corpuscular Volume 88 fL (79-100) 88 fL (79-100) Mean Corpuscular Hemoglobin 28 pg (25-35) 28 pg (25-35) Mean Corpuscular Hemoglobin Concent 32 g/dL (31-37) 32 g/dL (31-37) Red Cell Distribution Width 16.1 % (11.5-14.5) 16.2 % (11.5-14.5) Platelet Count 234 x10^3/uL (140-400) 248 x10^3/uL (140-400) Magnesium Level 1.7 mg/dL (1.8-2.4) Microbiology 12/08/19 Blood Culture - Preliminary, Resulted NO GROWTH AFTER 4 DAYS... Medications Current Medications Piperacillin Sod/ Tazobactam Sod 4.5 gm/Sodium Chloride 100 ml @ 200 mls/hr 1X ONCE IV Last administered on 12/08/19at 04:35; Start 3/11/20 at 04:00; Stop 12/08/19 at 04:29; Status DC Sodium Chloride 2,460 ml @ 2,460 mls/hr Q1H IV Last administered on 12/08/19at 04:04; Start 12/08/19 at 03:37; Stop 12/08/19 at 04:19; Status DC Vancomycin HCl (Vanco Per Pharmacy) 1 each PRN DAILY PRN MC SEE COMMENTS Last administered on 12/08/19at 07:30; Start 12/08/19 at 03:45; Stop 12/08/19 at 14:12; Status DC Albuterol/ Ipratropium (Duoneb) 3 ml 1X ONCE NEB Last administered on 12/08/19at 04:04; Start 12/08/19 at 03:45; Stop 12/08/19 at 04:19; Status DC Piperacillin Sod/ Tazobactam Sod (Zosyn) 4.5 gm STK-MED ONCE IV ; Start 12/08/19 at 04:13; Stop 12/08/19 at 04:13; Status DC Sodium Chloride 100 ml @ As Directed STK-MED ONCE .ROUTE ; Start 12/08/19 at 04:13; Stop 12/08/19 at 04:13; Status DC Piperacillin Sod/ Tazobactam Sod (Zosyn) 4.5 gm STK-MED ONCE IV ; Start 12/08/19 at 04:18; Stop 12/08/19 at 04:19; Status DC Sodium Chloride 100 ml @ As Directed STK-MED ONCE .ROUTE ; Start 12/08/19 at 04:18; Stop 12/08/19 at 04:19; Status DC Sodium Chloride 1,000 ml @ 2,460 mls/hr Q25M IV ; Start 12/08/19 at 04:30; Stop 12/08/19 at 04:37; Status DC Vancomycin HCl 2 gm/Sodium Chloride 500 ml @ 250 mls/hr 1X ONCE IV Last administered on 12/08/19at 07:16; Start 12/08/19 at 04:30; Stop 12/08/19 at 14:09; Status DC Dextrose/Sodium Chloride 1,000 ml @ 75 mls/hr 1X ONCE IV Last administered on 12/08/19at 05:16; Start 12/08/19 at 04:45; Stop 12/08/19 at 08:37; Status DC Dextrose (Dextrose 50%-Water Syringe) 25 gm 1X ONCE IV Last administered on 12/08/19at 04:45; Start 12/08/19 at 04:45; Stop 12/08/19 at 05:24; Status DC Aspirin (Children'S Aspirin) 324 mg 1X ONCE PO Last administered on 12/08/19at 05:00; Start 12/08/19 at 05:00; Stop 12/08/19 at 05:24; Status DC Acetaminophen (Tylenol) 650 mg 1X ONCE PO ; Start 12/08/19 at 05:15; Stop 12/08/19 at 05:24; Status DC Diltiazem HCl (Cardizem Iv Push) 10 mg 1X ONCE IVP ; Start 12/08/19 at 05:15; Stop 12/08/19 at 05:24; Status DC Apixaban (Eliquis) 10 mg 1X STAT PO ; Start 12/08/19 at 05:03; Stop 12/08/19 at 05:17; Status DC Calcium Gluconate 1,000 mg 1X ONCE IV Last administered on 12/08/19at 05:17; Start 12/08/19 at 05:15; Stop 12/08/19 at 05:24; Status DC Sodium Chloride 500 ml @ As Directed STK-MED ONCE .ROUTE ; Start 12/08/19 at 06:35; Stop 12/08/19 at 06:36; Status DC Vancomycin HCl (Vancomycin) 1 gm STK-MED ONCE .ROUTE ; Start 12/08/19 at 06:36; Stop 12/08/19 at 06:36; Status DC Vancomycin HCl 1.75 gm/Sodium Chloride 500 ml @ 250 mls/hr Q24H IV ; Start 12/09/19 at 07:00; Stop 12/08/19 at 14:09; Status DC Vancomycin HCl (Vancomycin Trough Level) 1 each 1X ONCE MC ; Start 12/10/19 at 06:30; Stop 12/08/19 at 14:10; Status DC Piperacillin Sod/ Tazobactam Sod (Zosyn Per Pharmacy) 1 each PRN DAILY PRN MC SEE COMMENTS; Start 12/08/19 at 08:45 Piperacillin Sod/ Tazobactam Sod 4.5 gm/Sodium Chloride 50 ml @ 100 mls/hr Q8H IV Last administered on 12/12/19at 12:45; Start 12/08/19 at 12:00 Ondansetron HCl (Zofran) 4 mg PRN Q8HRS PRN IVP NAUSEA/VOMITING Last administered on 12/09/19at 13:18; Start 12/08/19 at 09:00 Albuterol/ Ipratropium (Duoneb) 3 ml RTQID NEB Last administered on 12/12/19at 11:37; Start 12/08/19 at 09:00 Furosemide (Lasix) 40 mg 1X ONCE IVP Last administered on 12/08/19 14:53; Start 12/08/19 at 15:00; Stop 12/08/19 at 15:01; Status DC Linezolid 300 ml @ 300 mls/hr Q12HR IV Last administered on 12/09/19at 08:40; Start 12/08/19 at 21:00; Stop 12/09/19 at 14:15; Status DC Digoxin (Lanoxin) 500 mcg 1X ONCE IV Last administered on 12/08/19at 14:53; Start 12/08/19 at 15:15; Stop 12/08/19 at 15:16; Status DC Lactobacillus Rhamnosus (Culturelle) 1 cap BID PO Last administered on 12/12/19at 08:10; Start 12/08/19 at 21:00 Amiodarone HCl 150 mg/Dextrose 103 ml @ 618 mls/hr 1X ONCE IVP Last administered on 12/08/19at 16:36; Start 12/08/19 at 17:00; Stop 12/08/19 at 17:09; Status DC Amiodarone HCl (Cordarone) 200 mg BID PO Last administered on 12/12/19at 08:10; Start 12/08/19 at 21:00 Metoprolol Tartrate (Lopressor) 25 mg BID PO Last administered on 12/12/19at 08:11; Start 12/08/19 at 23:30 Acetaminophen (Tylenol) 650 mg PRN Q6HRS PRN PO fever; Start 12/09/19 at 08:45 Aspirin (Children'S Aspirin) 81 mg DAILY PO Last administered on 12/12/19at 08:11; Start 12/09/19 at 09:00 Ferrous Sulfate (Feosol) 325 mg BID PO Last administered on 12/12/19 08:08; Start 12/09/19 at 09:00 Ibuprofen (Motrin) 200 mg Q6HRS PO ; Start 12/09/19 at 12:00; Stop 12/09/19 at 11:48; Status DC Atorvastatin Calcium (Lipitor) 40 mg QHS PO ; Start 12/09/19 at 21:00; Stop 12/10/19 at 18:51; Status DC Glipizide (Glucotrol) 2.5 mg DAILY PO Last administered on 12/12/19at 08:09; Start 12/09/19 at 09:00 Potassium Chloride (Klor-Con) 20 meq DAILY PO Last administered on 12/11/19at 09:00; Start 12/09/19 at 09:00; Stop 12/11/19 at 12:06; Status DC Vitamin D (Vitamin D3) 2,000 unit DAILY PO Last administered on 12/12/19at 08:10; Start 12/09/19 at 09:00 Furosemide (Lasix) 40 mg 1X ONCE IVP Last administered on 12/09/19at 12:03; Start 12/09/19 at 12:00; Stop 12/09/19 at 12:01; Status DC Potassium Chloride (Klor-Con) 20 meq 1X ONCE PO Last administered on 12/09/19at 12:02; Start 12/09/19 at 12:00; Stop 12/09/19 at 12:01; Status DC Ibuprofen (Motrin) 200 mg PRN Q6HRS PO ; Start 12/09/19 at 12:00; Stop 12/09/19 at 13:04; Status DC Linezolid (Zyvox) 600 mg BID PO Last administered on 12/12/19 08:14; Start 12/09/19 at 21:00 Furosemide (Lasix) 40 mg DAILY IVP Last administered on 12/12/19 09:22; Start 12/09/19 at 14:30 Gabapentin (Neurontin) 300 mg TID PO Last administered on 12/12/19 08:11; Start 12/09/19 at 21:00 Vancomycin HCl (Vancomycin Oral Solution) 125 mg [id number] PO Last administered on 12/12/19at 13:32; Start 12/10/19 at 09:00 Potassium Chloride (Klor-Con) 20 meq BID PO ; Start 12/11/19 at 11:00; Stop 12/11/19 at 15:05; Status DC Potassium Chloride (Klor-Con) 40 meq 1X ONCE PO ; Start 12/11/19 at 11:00; Stop 12/11/19 at 15:05; Status DC Potassium Chloride (Klor-Con) 20 meq BID PO Last administered on 12/12/19at 08:12; Start 12/11/19 at 21:00 Potassium Chloride (Klor-Con) 40 meq 1X ONCE PO ; Start 12/11/19 at 12:15; St op 12/11/19 at 13:09; Status DC Potassium Chloride (Klor-Con) 40 meq 1X ONCE PO Last administered on 12/11/19at 13:15; Start 12/11/19 at 13:15; Stop 12/11/19 at 14:50; Status DC Potassium Chloride (Klor-Con) 40 meq 1X ONCE PO ; Start 12/11/19 at 13:15; Stop 12/11/19 at 15:05; Status DC Active Scripts Active Reported Gabapentin 600 Mg Tablet 300 Mg PO TID Vitamin D3 (Cholecalciferol (Vitamin D3)) 2,000 Unit Tab.chew 2,000 Unit PO DAILY Tylenol (Acetaminophen) 325 Mg Tablet 650 Mg PO Q 6HRS PRN PRN [tiotropium brom mono] 2 Puff INH DAILY Rosuvastatin Calcium 10 Mg Tablet 10 Mg PO QHS Protonix (Pantoprazole Sodium) 40 Mg Tablet.dr 40 Mg PO DAILYAC Potassium Chloride (Potassium Chloride) 20 Meq Tablet.er 20 Meq PO DAILY Metoprolol Tartrate 50 Mg Tablet 50 Mg PO BID Duoneb 0.5-3(2.5) Mg/3 Ml (Albuterol/Ipratropium) 3 Ml Ampul.neb 3 Ml NEB Q4HRS Lantus Solostar (Insulin Glargine,Hum.rec.anlog) 100 Unit/1 Ml Insuln.pen 20 Unit SQ QHS Ibuprofen 200 Mg Tablet 200 Mg PO Q6HRS Glipizide 5 Mg Tablet 2.5 Mg PO DAILY Gabapentin 600 Mg Tablet 600 Mg PO TID Furosemide 40 Mg Tablet 40 Mg PO DAILY Ferrous Sulfate 325 Mg Tablet 325 Mg PO BID Doxycycline Hyclate 100 Mg Capsule 100 Mg PO BID 5 Days Cristelaonide-Formoterol 80-4.5 (Budesonide/Formoterol Fumarate) 10.2 Gm Hfa.aer.ad 10.2 Gm IH DAILY16 Aspirin 81 Mg Tab.chew 81 Mg PO DAILY Vitals/I & O Vital Sign - Last 24 Hours 12/11/19 12/11/19 12/11/19 12/11/19 16:00 16:00 16:30 19:00 Temp 98.1 Pulse 117 74 Resp 24 23 B/P (MAP) 144/75 (98) 127/50 (75) Pulse Ox 93 97 93 O2 Delivery Nasal Cannula Nasal Cannula Nasal Cannula Nasal Cannula O2 Flow Rate 4.0 3.0 4.0 2.0 12/11/19 12/11/19 12/11/19 12/11/19 20:00 20:44 20:44 21:59 Pulse 117 117 B/P (MAP) 144/75 144/75 Pulse Ox 92 O2 Delivery Nasal Cannula Nasal Cannula O2 Flow Rate 2.0 2.0 12/11/19 12/12/19 12/12/19 12/12/19 23:00 05:49 07:00 08:00 Temp 97.8 Pulse 115 79 Resp 10 18 B/P (MAP) 105/49 (67) 102/34 (56) Pulse Ox 93 94 92 O2 Delivery Nasal Cannula Nasal Cannula Nasal Cannula Nasal Cannula O2 Flow Rate 2.0 2.0 3.0 2.0 12/12/19 12/12/19 12/12/19 12/12/19 08:10 08:11 11:00 11:39 Pulse 79 79 66 Resp 18 B/P (MAP) 102/34 102/34 122/47 (72) Pulse Ox 94 97 O2 Delivery Room Air Nasal Cannula O2 Flow Rate 2.0 Intake and Output 12/11/19 12/11/19 12/12/19 15:00 23:00 07:00 Intake Total 530 ml 290 ml 50 ml Output Total 300 ml 200 ml 600 ml Balance 230 ml 90 ml -550 ml ANDREINA VEGA MD Dec 12, 2019 13:52
[2019-12-12 15:00] VITALS: BP 139/53
--- NOTE | 2019-12-12 15:57 | RAD ---
EXAM: Right lower extremity venous Doppler sonogram. HISTORY: Pain and swelling. TECHNIQUE: Reed scale and color Doppler sonographic evaluation of the right lower extremity veins with spectral waveform analysis was performed. FINDINGS: There is normal color flow, normal compressibility and there are normal spectral waveforms in the common femoral, superficial femoral, popliteal, posterior tibial and greater saphenous veins. The calf veins are not well seen likely due to soft tissue edema. IMPRESSION: No Doppler evidence of lower extremity deep venous thrombosis. Electronically signed by: Violet Rod MD (12/12/2019 3:54 PM) [facility]
--- NOTE | 2019-12-12 18:07 | PN ---
DATE: SUBJECTIVE: The patient is resting, slightly propped up in bed, no apparent distress. He is awake, alert, definitely feeling generally much improved. He has no more shortness of breath, cough or phlegm. His diarrhea is subsiding. Unfortunately, he has wounds continued to be worse in his right foot. PHYSICAL EXAMINATION: GENERAL: When I examined him, he looked somewhat pale. No jaundice, cyanosis or thyromegaly. No jugular venous distention. No lower limb edema. VITAL SIGNS: Her heart rate was 66, blood pressure was 122/47, temperature was 97.8, respiratory rate was 18 and oxygen saturation was 97% on 2 liters of oxygen. HEAD, EYES, EARS, NOSE AND THROAT: Showed normocephalic, atraumatic. NECK: Supple. HEART: Showed normal first and second heart sounds with no gallop or murmur. CHEST: Clear to auscultation. No crepitation or rhonchi. ABDOMEN: Distended, soft, nontender. NEUROLOGIC: He is awake, alert, responding appropriately. All his cranial nerves are intact. He moves extremities without difficulty. His wounds on his right foot seems to be worse. I explained to him that he probably needs to go to [facility] where he can get his antibiotics and wound VAC. He seems to be referred to go back to [facility]. LABORATORY DATA: His lab work this morning showed a white cell count of 12,800, hemoglobin 9.7, hematocrit 30.6, MCV 88 and platelet count 248,000. His chemistry showed a serum sodium 140, potassium 3.8, chloride 104, bicarbonate 26, anion gap of 10, BUN 17, creatinine 1.6, estimated GFR was 42 mL per minute. His glucose was 50. Calcium was 8, magnesium was 1.7. ASSESSMENT: 1. Junctional tachycardia with no evidence of atrial fibrillation. The patient was started on amiodarone. His heart rate is well controlled. 2. Acute respiratory failure secondary to acute on chronic diastolic congestive heart failure. A. Chronic obstructive pulmonary disease exacerbation. B. Right lower lobe pneumonia. 3. He apparently had an echocardiogram done at [facility] recently showing preserved left ventricular systolic function for his mild elevation of troponin peaked at 0.140, most probably type 2 demand ischemia. 4. He has coronary artery disease, status post coronary artery bypass graft surgery. 5. Hypertension, well controlled. 6. Hyperlipidemia, on statin. 7. Type 2 diabetes mellitus, seems to be reasonably controlled. 8. Acute on chronic kidney injury. His creatinine has stabilized around 1.7 mg/dL. 9. Clostridium difficile colitis for which he is on vancomycin and it seemed to be improving, although has not subsided hypokalemia, much improved. His potassium has risen from 3.2-3.8. PLAN: My plan is to continue with IV antibiotic. I will arrange for him to have a Doppler ultrasound of his right lower extremity to make that there is no evidence of deep vein thrombosis there. I firmly believe that he should be at [facility] if he wants to keep his foot as he would require treatment with IV antibiotic for an extended period of time. ROSELYN MARRERO MD DR: LEEANNA/maximino JOB#: [id number] / [id number]
[2019-12-12 20:00] VITALS: BP 128/45
[2019-12-12 23:00] VITALS: BP 132/49
[2019-12-13 05:00] VITALS: BP 137/59
[2019-12-13] MEDS: PIPERACILLIN/TAZOBACTAM 4.5 GM in IV NORMAL SALINE 50ML 50 ML IV SCH ×3 (05:16→20:58)
--- NOTE | 2019-12-13 05:33 | NUR ---
Pt slept well most of the night and states he is feeling better. No loose stools this shift. Offered pt hygiene care and he refused at this time, stating he was still tired. Pt still requiring 2L NC. Assessment unchanged.
[2019-12-13] MEDS: IPRATRPIUM/ALBUTEROL 0.5/2.5MG 3 ML NEBU. NEB SCH ×4 (05:54→21:12)
[2019-12-13 06:38] LABS: CALCIUM 8.2 mg/dL (8.5-10.1); CREATININE 1.7 mg/dL (0.7-1.3); GFR 39.6; POTASSIUM 3.9 mmol/L (3.5-5.1)
--- NOTE | 2019-12-13 08:06 | PDOC ---
CARDIO Progress Notes Date & Time Date of Service DATE: 12/13/19 TIME: 08:04 Time of Evaluation 08:04 Subjective Notes no CP, SOA improved Vitals Vitals Vital Signs Date Time Temp Pulse Resp B/P (MAP) Pulse Ox O2 Delivery O2 Flow Rate FiO2 12/13/19 05:55 95 Nasal Cannula 2.5 12/13/19 05:00 97.9 77 20 137/59 (85) Weight Weight [ ] Input and Output I.O. Intake and Output 12/13/19 07:00 Intake Total 940 ml Output Total 1000 ml Balance -60 ml Intake Oral 840 ml IV Total 100 ml Output Urine Total 1000 ml # Voids 1 # Bowel Movements 1 Laboratory Labs Laboratory Tests Test 12/12/19 06:05 12/12/19 18:28 12/13/19 05:43 White Blood Count 12.8 x10^3/uL (4.0-11.0) Red Blood Count 3.49 x10^6/uL (4.30-5.70) Hemoglobin 9.7 g/dL (13.0-17.5) Hematocrit 30.6 % (39.0-53.0) Mean Corpuscular Volume 88 fL (79-100) Mean Corpuscular Hemoglobin 28 pg (25-35) Mean Corpuscular Hemoglobin Concent 32 g/dL (31-37) Red Cell Distribution Width 16.2 % (11.5-14.5) Platelet Count 248 x10^3/uL (140-400) Sodium Level 140 mmol/L (136-145) 138 mmol/L (136-145) Potassium Level 3.8 mmol/L (3.5-5.1) 3.9 mmol/L (3.5-5.1) Chloride Level 104 mmol/L (98-107) 103 mmol/L (98-107) Carbon Dioxide Level 26 mmol/L (21-32) 24 mmol/L (21-32) Anion Gap 10 (6-14) 11 (6-14) Blood Urea Nitrogen 17 mg/dL (8-26) 18 mg/dL (8-26) Creatinine 1.6 mg/dL (0.7-1.3) 1.7 mg/dL (0.7-1.3) Estimated GFR (Cockcroft-Gault) 42.5 39.6 Glucose Level 50 mg/dL (70-99) 85 mg/dL (70-99) Calcium Level 8.0 mg/dL (8.5-10.1) 8.2 mg/dL (8.5-10.1) Magnesium Level 1.7 mg/dL (1.8-2.4) Glucose (Fingerstick) 115 mg/dL (70-99) Microbiology Micro Microbiology 12/08/19 Blood Culture - Final, Complete NO GROWTH AFTER 5 DAYS... Physical Exams HEENT: Neck Supple W Full Motion Chest: Symmetric Lungs: Other (diminished, coarse ) Heart: RRR (SR/ST with 1st AVB) Abdomen: Soft N/T Extremities: Other (trace bilateral LLE edema, 1+ RLE edema, drsg intact to right foot ) Neurology: alert, oriented, follow commands Assessment Assessment 1. Junctional tachycardia; maintaining SR/ST. Amiodarone for rhythm control. 2. Acute respiratory with with a/c diastolic CHF, AE COPD, and probable PNA. Echo at with preserved LV systolic function 3. Mild troponin elevation; peak 0.104. Most probably type II, demand ischemia secondary to above. CP free 3. CAD s/p CABG 4. Hypertension; controlled 5. Hyperlipidemia; statin 6. Diabetes, II 7. TITO vs CKD; Cr stable Recommendations Ongoing diuresis. Continue Metoprolol, Amiodarone for rhythm, rate control Continue secondary prevention measures Supportive care APRIL JI APRN Dec 13, 2019 08:06
[2019-12-13] MEDS: GABAPENTIN 300 MG CAPSULE. PO SCH ×3 (08:31→20:56)
[2019-12-13] MEDS: METOPROLOL TART IMMED RELEASE 25 MG TABLET PO SCH ×2 (08:31→20:56)
[2019-12-13] MEDS: FERROUS SULFATE 325 MG TABLET. PO SCH ×2 (08:31→20:57)
[2019-12-13] MEDS: POTASSIUM CHLORIDE 20 MEQ TABLET.ER. PO SCH ×2 (08:31→20:57)
[2019-12-13] MEDS: AMIODARONE HCL 200 MG TABLET PO SCH ×2 (08:32→20:57)
[2019-12-13] MEDS: FUROSEMIDE 40 MG/4 ML VIAL IVP SCH (08:32)
[2019-12-13] MEDS: ASPIRIN 81 MG TAB.CHEW PO SCH (08:32)
[2019-12-13] MEDS: VANCOMYCIN 125 MG/2.5 ML ORAL SOLUTION. PO SCH ×4 (08:32→20:57)
[2019-12-13] MEDS: LINEZOLID 600 MG TABLET PO SCH ×2 (08:32→21:03)
[2019-12-13] MEDS: CHOLECALCIFEROL (VITAMIN D3) 1,000 UNIT TABLET PO SCH (08:32)
[2019-12-13] MEDS: LACTOBACILLUS RHAMNOSUS GG 1 CAPSULE. PO SCH ×2 (08:32→20:56)
[2019-12-13] MEDS: glipiZIDE 5 MG TABLET PO SCH (08:33)
--- NOTE | 2019-12-13 09:55 | NUR ---
IP: Patient tests positive for c diff, requires contact + precautions.
[2019-12-13 11:54] VITALS: BP 121/46
[2019-12-13 16:09] VITALS: BP 111/52
--- NOTE | 2019-12-13 16:11 | NUR ---
PT feeling better today. PT did go to shower today and was up to wheel chair numerous times using walker. PT wants to go back to [facility] because the bed was 'hard to get', while DR Deal is insistent that he go to [facility]. Abbie HUNG
[2019-12-13 19:06] VITALS: BP 126/54
[2019-12-13 22:38] VITALS: BP 131/68
--- NOTE | 2019-12-14 00:41 | PN ---
DATE: 12/13/2019 ATTENDING PHYSICIAN: Dr. Hernandez CHIEF COMPLAINT: Leg swelling. SUBJECTIVE: The patient has some dyspnea with minimal exertion. Appetite is fair. Pain is not a problem due to neuropathy. He still has a slightly productive cough. The diarrhea is improved, is not as bad. The wounds were still open and festering. OBJECTIVE FINDINGS: VITAL SIGNS: His blood pressure today is 137/58, pulse was between 100 and 120. He was afebrile, temperature 97.8, oxygen saturation 89% on room air. He is wearing p.r.n. supplemental oxygen. HEENT: Head is without trauma. Pupils are reactive. Sclerae nonicteric. Oropharynx clear. NECK: Supple, no bruits. Venous pressure is slightly distended. LUNGS: Coarse rhonchi bilaterally, more so on the bases. CARDIOVASCULAR: Showed distant heart tones. No gallops. Peripheral pulses are palpable and full. ABDOMEN: Obese, protuberant. No organomegaly. Bowel sounds are normoactive. EXTREMITIES: Show 2+ edema. There is an open wound on the sole of his right foot that is not any better. LABORATORY DATA: As noted. ASSESSMENT: 1. A 74-year-old gentleman with chronic wound infection of the right foot with continued cellulitis and probable osteomyelitis. 2. Acute on chronic respiratory failure. 3. Acute on chronic congestive heart failure. 4. Chronic obstructive pulmonary disease with exacerbation. 5. Right lower lobe pneumonia. 6. Coronary artery disease, previous bypass graft. 7. Peripheral artery disease. 8. Essential hypertension. 9. Type 2 diabetes. 10. Hyperlipidemia. 11. Chronic kidney injury. 12. Clostridium difficile colitis, stable on oral vancomycin. PLAN: 1. Continue antibiotics as ordered. 2. Continue p.o. vancomycin. 3. Diet as tolerated. 4. We shall ask director social to put in a consult to [facility] if he wishes to continue long-term therapy. Unfortunately, prognosis does not remain improved, short of amputation. He understands this, but he wants to do conservative therapy at this time. GAVIN HERNANDEZ MD DR: KING/maximino JOB#: [id number] / [id number] tommy Deal Dr.
[2019-12-14] MEDS: PIPERACILLIN/TAZOBACTAM 4.5 GM in IV NORMAL SALINE 50ML 50 ML IV SCH ×3 (04:08→20:24)
[2019-12-14 05:12] VITALS: BP 129/64
[2019-12-14] MEDS: IPRATRPIUM/ALBUTEROL 0.5/2.5MG 3 ML NEBU. NEB SCH ×4 (05:34→21:11)
--- NOTE | 2019-12-14 08:06 | PDOC ---
CARDIO Progress Notes Date & Time Date of Service DATE: 12/14/19 TIME: 07:51 Time of Evaluation 07:51 Subjective Notes SOA improved. Intermittent cough persists. No CP, palpitations. Vitals Vitals Vital Signs Date Time Temp Pulse Resp B/P (MAP) Pulse Ox O2 Delivery O2 Flow Rate FiO2 12/14/19 05:37 94 Nasal Cannula 2.0 12/14/19 05:12 97.4 69 20 129/64 (85) Weight Weight [ ] Input and Output I.O. Intake and Output 12/14/19 07:00 Intake Total 860 ml Output Total 400 ml Balance 460 ml Intake Oral 810 ml IV Total 50 ml Output Urine Total 400 ml # Voids 3 # Bowel Movements 3 Laboratory Labs Laboratory Tests Test 12/12/19 18:28 12/13/19 05:43 Glucose (Fingerstick) 115 mg/dL (70-99) Sodium Level 138 mmol/L (136-145) Potassium Level 3.9 mmol/L (3.5-5.1) Chloride Level 103 mmol/L (98-107) Carbon Dioxide Level 24 mmol/L (21-32) Anion Gap 11 (6-14) Blood Urea Nitrogen 18 mg/dL (8-26) Creatinine 1.7 mg/dL (0.7-1.3) Estimated GFR (Cockcroft-Gault) 39.6 Glucose Level 85 mg/dL (70-99) Calcium Level 8.2 mg/dL (8.5-10.1) Microbiology Micro Microbiology 12/08/19 Blood Culture - Final, Complete NO GROWTH AFTER 5 DAYS... Physical Exams HEENT: Neck Supple W Full Motion Chest: Symmetric Lungs: Other (fine expiratory wheeze) Heart: RRR (SR/ST with 1st AVB) Abdomen: Soft N/T Extremities: Other (trace bilateral LLE edema, 1+ RLE edema with erythema, drsg intact to right foot ) Neurology: alert, oriented, follow commands Assessment Assessment 1. PAFIB; maintaining SR/ST. Amiodarone for rhythm control. 2. Acute respiratory with with a/c diastolic CHF, AE COPD, and PNA. Echo at with preserved LV systolic function 3. Mild troponin elevation; peak 0.104. Most probably type II, demand ischemia secondary to above. CP free 3. CAD s/p CABG 2016 4. Hypertension; controlled 5. Hyperlipidemia; statin 6. Diabetes, II 7. CKD; Cr stable 8. PAD s/p recent vascualr intervention at prior to amputation 9. RLE wound with cellulitis and concerns for osteomyelitis 10. C-diff Recommendations BMP, Mg Convert lasix to oral diuresis. Continue Metoprolol, Amiodarone for rhythm, rate control. Will increase metoprolol to 50mg BID for better rate control. This is routine home dose. Secondary prevention prevention measures Supportive care APRIL JI APRN Dec 14, 2019 08:06
[2019-12-14] MEDS: CHOLECALCIFEROL (VITAMIN D3) 1,000 UNIT TABLET PO SCH (08:25)
[2019-12-14] MEDS: GABAPENTIN 300 MG CAPSULE. PO SCH ×3 (08:25→20:24)
[2019-12-14] MEDS: POTASSIUM CHLORIDE 20 MEQ TABLET.ER. PO SCH ×2 (08:26→20:25)
[2019-12-14] MEDS: ASPIRIN 81 MG TAB.CHEW PO SCH (08:26)
[2019-12-14] MEDS: METOPROLOL TART IMMED RELEASE 50 MG TABLET PO SCH ×2 (08:26→20:24)
[2019-12-14] MEDS: LINEZOLID 600 MG TABLET PO SCH ×2 (08:26→20:29)
[2019-12-14] MEDS: AMIODARONE HCL 200 MG TABLET PO SCH ×2 (08:27→20:24)
[2019-12-14] MEDS: glipiZIDE 5 MG TABLET PO SCH (08:27)
[2019-12-14] MEDS: LACTOBACILLUS RHAMNOSUS GG 1 CAPSULE. PO SCH ×2 (08:27→20:24)
[2019-12-14] MEDS: FERROUS SULFATE 325 MG TABLET. PO SCH ×2 (08:27→20:24)
[2019-12-14 09:31] LABS: CALCIUM 8.4 mg/dL (8.5-10.1); CREATININE 1.7 mg/dL (0.7-1.3); GFR 39.6; MAGNESIUM 1.7 mg/dL (1.8-2.4); POTASSIUM 3.9 mmol/L (3.5-5.1)
[2019-12-14] MEDS ORDERED: MAGNESIUM SULFATE 2GM 50 ML IV ONE (09:45)
--- NOTE | 2019-12-14 10:01 | NUR ---
Wound care Wound care follow up for DFU's to right foot. Pt has DFU to right plantar great toe that is covered with dry slough, no signs of infection present. Dressed wound with vaseline gauze and kerlix. 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 There are several jameel present in thi-wound. Cleansed area and dressed with medihoney alginate, ABD and kerlix, recommend to change every 3 days. Pt has mild yeast rash to inner gluteal fold, applied nystatin powder mixed with calazime. No other wounds noted. WC will continue to follow for possible changes. Pt educated on PU prevention, pt verbalized he continues to turn frequently.
--- NOTE | 2019-12-14 10:16 | RAD ---
EXAM: CHEST PA LATERAL INDICATION: Cough, shortness of air. Pneumonia/CHF.. TECHNIQUE: PA and lateral views COMPARISON: Chest x-ray of December 08, 2019. FINDINGS: Poststernotomy surgical changes compatible prior CABG are redemonstrated. The heart size is normal. The great vessels appear unremarkable. There is no hilar or mediastinal mass. Lungs show peribronchial thickening in the lower lobes and developing opacities in multiple lobes of the right lung. There is also mild prominence of the pulmonary vessels. There is no pleural effusion or pneumothorax. There are no significant osseous abnormalities. IMPRESSION: Developing multifocal opacities in the right lung, suspicious for worsening pneumonia. Superimposed pulmonary vascular congestion is not excluded.. Electronically signed by: Alondra Arias MD (12/14/2019 10:13 AM) [id number]
[2019-12-14] MEDS: VANCOMYCIN 125 MG/2.5 ML ORAL SOLUTION. PO SCH ×4 (10:34→20:29)
[2019-12-14] MEDS: FUROSEMIDE 40 MG TABLET PO SCH (10:34)
[2019-12-14 11:23] VITALS: BP 145/76
--- NOTE | 2019-12-14 11:36 | PN ---
DATE: 12/14/2019 ATTENDING PHYSICIAN: Dr. Deal. SUBJECTIVE: The patient is breathing better. He is less dyspneic today. Appetite is better. He ate most of his breakfast. Pain is not a problem. He does not feel his leg wound. The nonproductive cough is improved. Diarrhea has improved. The wound remains open in his right foot. His chest x-ray today is lagging in the clinical response. OBJECTIVE FINDING: VITAL SIGNS: Blood pressure was 129/64, pulse is 68 and regular. He was afebrile, oxygen saturation adequate at 2 liters nasal cannula. HEENT: Head is without trauma. Pupils are reactive. Sclerae are nonicteric. The oropharynx is clear. NECK: Supple. LUNGS: Minimal rhonchi at bases. CARDIOVASCULAR: Showed regular heart tones. No obvious gallops. Peripheral pulses are palpable and full. ABDOMEN: Soft, obese, protuberant. No organomegaly. Bowel sounds were hypoactive. EXTREMITIES: Showed 1+ edema. The right foot remains open with granulation tissue and some drainage from his sole of the right foot. LABORATORY DATA: Creatinine is 1.7 mg/dL, potassium is 3.9 mEq, sodium adequate. BUN is 17. ASSESSMENT: 1. A 74-year-old gentleman with chronic wound of the right foot with continuous cellulitis and probable underlying osteomyelitis. 2. Acute on chronic respiratory failure, stable. 3. Acute on chronic congestive heart failure, compensated. 4. Chronic obstructive pulmonary disease with exacerbation. 5. Right lobe pneumonia. 6. Coronary artery disease with previous bypass and graft. 7. Peripheral artery disease. 8. Essential hypertension. 9. Type 2 diabetes. 10. Chronic kidney disease stage 3. 11. Longstanding Clostridium difficile colitis, stable on oral vancomycin. PLAN: 1. Continue antibiotics as prescribed. 2. PO vancomycin as ordered. 3. Diet as tolerated. 4. We talked about long-term placement at [facility] He wants to go to [facility]. I told him this is not feasible since they cannot take long-term antibiotics. We will decide sometime later this week as to what he wants to do. GAVIN HERNANDEZ MD DR: KING/maximino JOB#: [id number] / [id number] ROSELYN Magana MD
[2019-12-14 16:10] VITALS: BP 151/73
--- NOTE | 2019-12-14 16:41 | NUR ---
Patient is having a much better day, sitting up on bedside for meals. States he is breathing better today and requiring 2L NC. Continues on ABT for cdiff, osteomyelitis and pneumonia. Cardiology here this morning, repeat chest xray and new orders to change IV lasix to PO. Patient continues to have congested cough, lungs sounds coarse. Nurse continues to encouraging deep breath and ambulation.
[2019-12-14 19:25] VITALS: BP 153/53
[2019-12-14 23:26] VITALS: BP 120/61
[2019-12-14] MEDS: ACETAMINOPHEN 325 MG TABLET PO PRN (23:27)
[2019-12-15] MEDS: PIPERACILLIN/TAZOBACTAM 4.5 GM in IV NORMAL SALINE 50ML 50 ML IV SCH ×3 (03:51→20:20)
[2019-12-15] MEDS: IPRATRPIUM/ALBUTEROL 0.5/2.5MG 3 ML NEBU. NEB SCH ×4 (04:31→20:57)
[2019-12-15 05:26] VITALS: BP 150/85
[2019-12-15] MEDS: CHOLECALCIFEROL (VITAMIN D3) 1,000 UNIT TABLET PO SCH (08:25)
[2019-12-15] MEDS: METOPROLOL TART IMMED RELEASE 50 MG TABLET PO SCH ×2 (08:25→20:23)
[2019-12-15] MEDS: AMIODARONE HCL 200 MG TABLET PO SCH ×2 (08:26→20:22)
[2019-12-15] MEDS: FUROSEMIDE 40 MG TABLET PO SCH (08:26)
[2019-12-15] MEDS: POTASSIUM CHLORIDE 20 MEQ TABLET.ER. PO SCH ×2 (08:26→20:21)
[2019-12-15] MEDS: FERROUS SULFATE 325 MG TABLET. PO SCH ×2 (08:26→20:22)
[2019-12-15] MEDS: LACTOBACILLUS RHAMNOSUS GG 1 CAPSULE. PO SCH ×2 (08:26→20:22)
[2019-12-15] MEDS: ASPIRIN 81 MG TAB.CHEW PO SCH (08:26)
[2019-12-15] MEDS: glipiZIDE 5 MG TABLET PO SCH (08:26)
[2019-12-15] MEDS: GABAPENTIN 300 MG CAPSULE. PO SCH ×3 (08:27→20:21)
[2019-12-15] MEDS: LINEZOLID 600 MG TABLET PO SCH ×2 (08:27→20:23)
[2019-12-15] MEDS: VANCOMYCIN 125 MG/2.5 ML ORAL SOLUTION. PO SCH ×4 (08:30→20:21)
[2019-12-15] MEDS: ACETAMINOPHEN 325 MG TABLET PO PRN (08:30)
[2019-12-15 12:02] VITALS: BP 110/65
[2019-12-15] MEDS ORDERED: traMADol 50 MG TABLET PO PRN (14:30)
[2019-12-15 16:07] VITALS: BP 126/59
--- NOTE | 2019-12-15 18:09 | PN ---
DATE: 12/15/2019 ATTENDING PHYSICIAN: Dr. Deal. SUBJECTIVE: The patient has no complaints. He denies any pain. He is breathing better. His productive cough is resolved and he is eating well. OBJECTIVE FINDINGS: VITAL SIGNS: His blood pressure today is 150/85. He is afebrile. Oxygen saturation 95% on 2 liters of oxygen nasal cannula. HEENT: Head is without trauma. Pupils are reactive. Sclerae nonicteric. Oropharynx clear. NECK: Supple, no bruits identified. LUNGS: Actually very clear today with excellent breath sounds. The rhonchi and rattling noises have dissipated. CARDIOVASCULAR: Showed distant heart tones. No obvious gallops. Peripheral pulses palpable and full. ABDOMEN: Obese, protuberant. No organomegaly. Bowel sounds are hypoactive. EXTREMITIES: Showed edema to be resolved. Creatinine on last check was 1.7 mg/dL. The right foot remains dressed with a wound and granulation tissue of the sole of the feet. ASSESSMENT: 1. A 74-year-old gentleman with chronic wound of the right foot with continuous cellulitis and probable underlying osteomyelitis. 2. Acute on chronic respiratory failure, improved. 3. Acute on chronic congestive heart failure, compensated. 4. Chronic obstructive pulmonary disease with exacerbation, improved. 5. Right lower lobe pneumonia, treated. 6. Coronary artery disease, previous bypass and graft. 7. Peripheral artery disease. 8. Essential hypertension. 9. Type 2 diabetes mellitus. 10. Chronic kidney disease stage 3. 11. Longstanding Clostridium difficile colitis, currently no symptoms of diarrhea. PLAN: 1. Continue his current IV antibiotics as ordered. 2. P.o. vancomycin as ordered. 3. Diet as tolerated. He is eating better. 4. Glucose control. 5. He has [employer] secondary in addition to Medicare, they are reviewing the case for [facility] for LTAC. GAVIN HERNANDEZ MD DR: KING/maximino JOB#: [id number] / [id number] ROSELYN Magana MD
[2019-12-15 19:32] VITALS: BP 143/64
[2019-12-15 22:54] VITALS: BP 150/68
[2019-12-16 01:58] VITALS: BP 121/72
[2019-12-16] MEDS ORDERED: diphenhydrAMINE HCL 25 MG CAPSULE PO PRN (02:00)
[2019-12-16] MEDS ORDERED: diphenhydrAMINE HCL 25 MG CAPSULE PO ONE (02:15)
--- NOTE | 2019-12-16 02:57 | NUR ---
@0130: Patient reports to nurse that his throat was sore and bother him. Per patient request patient given ice cubes. @0200: Patient reports that his throat is feeling worse and swollen. Patient asks this RN if we had given him any new medications. Only new medication started today was Tramadol. Patient states that he has never had problem with this medication in the past. Vital signs assessed and stable. Dr. Packer notified, orders obtained for Benadryl 50mg PO x1 now and Tramadol D/C'd @0230: Patient sleeping in bed, call light within reach. Will continue to closely monitor.
[2019-12-16] MEDS: PIPERACILLIN/TAZOBACTAM 4.5 GM in IV NORMAL SALINE 50ML 50 ML IV SCH ×3 (04:16→20:01)
[2019-12-16] MEDS: IPRATRPIUM/ALBUTEROL 0.5/2.5MG 3 ML NEBU. NEB SCH ×4 (04:35→20:57)
[2019-12-16 05:38] VITALS: BP 145/75
[2019-12-16] MEDS: VANCOMYCIN 125 MG/2.5 ML ORAL SOLUTION. PO SCH ×4 (08:17→20:37)
[2019-12-16] MEDS: GABAPENTIN 300 MG CAPSULE. PO SCH ×3 (08:17→20:37)
[2019-12-16] MEDS: ASPIRIN 81 MG TAB.CHEW PO SCH (08:17)
[2019-12-16] MEDS: FUROSEMIDE 40 MG TABLET PO SCH (08:18)
[2019-12-16] MEDS: CHOLECALCIFEROL (VITAMIN D3) 1,000 UNIT TABLET PO SCH (08:18)
[2019-12-16] MEDS: FERROUS SULFATE 325 MG TABLET. PO SCH ×2 (08:18→20:37)
[2019-12-16] MEDS: POTASSIUM CHLORIDE 20 MEQ TABLET.ER. PO SCH ×2 (08:18→20:37)
[2019-12-16] MEDS: LACTOBACILLUS RHAMNOSUS GG 1 CAPSULE. PO SCH ×2 (08:19→20:37)
[2019-12-16] MEDS: AMIODARONE HCL 200 MG TABLET PO SCH ×2 (08:19→20:37)
[2019-12-16] MEDS: LINEZOLID 600 MG TABLET PO SCH ×2 (08:20→20:37)
[2019-12-16] MEDS: METOPROLOL TART IMMED RELEASE 50 MG TABLET PO SCH ×2 (08:21→20:38)
[2019-12-16] MEDS ORDERED: PHENOL ORAL SPRAY 177ML BOTTLE. PO PRN (08:45)
[2019-12-16] MEDS: glipiZIDE 5 MG TABLET PO SCH (09:22)
[2019-12-16 11:26] VITALS: BP 129/64
--- NOTE | 2019-12-16 14:13 | PN ---
DATE: 12/16/2019 SUBJECTIVE: The patient is resting, slightly propped up in bed, in no respiratory distress. He continued to complain of cough and shortness of breath. He is hypoxic. His oxygen saturation on room air is down to 89% that improved to 92% on 2 liters of oxygen. He has few loose bowel movements, as he is known to have C. diff colitis. His wounds continue to have purulent material and necrotic tissue on the medial aspect of the right foot, on the outer aspect of the right foot, and also on the plantar aspect of the big toe. The wound has dehisced and his bone scan showed that there is increased tracer uptake in all 3 phases of the central right mid foot, likely the origin of the second and third metatarsal. Findings are suspicious for osteomyelitis. There is increased tracer uptake only in there. PHYSICAL EXAMINATION: GENERAL: When I examined him this afternoon, he was resting slightly propped up in bed, in no apparent respiratory distress. He was pale, but no jaundice, cyanosis or thyromegaly. No jugular venous distention or limb edema. VITAL SIGNS: His heart rate was 54, blood pressure was 129/64, temperature was 97.6, respiratory rate was 16, and oxygen saturation was 92% on 2 liters of oxygen. HEAD, EYES, EARS, NOSE AND THROAT: Showed normocephalic, atraumatic. NECK: Supple. HEART: Showed normal first and second heart sounds. No gallop, rub or murmur. CHEST: Clear to auscultation. No crepitation or rhonchi. Shows central trachea, equally reduced expansion, reduced air entry, reduced expansion with crepitation mostly in the right side posteriorly. I could not appreciate any rhonchi. ABDOMEN: Distended, soft, nontender. NEUROLOGIC: He was awake, alert, responding appropriately. All cranial nerves intact. He moves all his extremities without difficulty. His right foot wounds are covered with dressing. It was changed yesterday. His intake over the last 24 hours was 1600, output was 300. LABORATORY DATA: Showed a white cell count 12,800, hemoglobin 9.7, hematocrit 30, MCV 88 and platelet count 248,000. His chemistry showed a serum sodium 138, potassium 3.9, chloride 104, bicarbonate 25, anion gap of 9, BUN 17, creatinine 1.7, estimated GFR was 39 mL per minute. His glucose 113, calcium was 8.4, magnesium was 1.7. His stool for C. diff toxins were negative. His stool for occult blood was positive. His most recent chest x-ray showed that he has developing multifocal opacities in the right lung suspicious for worsening pneumonia, superimposed pulmonary vascular congestion is not excluded. Did have venous Doppler ultrasound of the right lower extremity, which showed no evidence of lower extremity deep vein thrombosis. ASSESSMENT: 1. This is a 74-year-old male patient with wound on the outer aspect of the right foot with superficial cellulitis and underlying osteomyelitis as per bone scan. 2. Acute on chronic respiratory failure. 3. Acute on chronic congestive heart failure. 4. Chronic obstructive pulmonary disease exacerbation, right lower lobe pneumonia, coronary artery disease, status post previous bypass graft surgery, peripheral arterial disease, essential hypertension, type 2 diabetes mellitus, chronic kidney disease stage 3, longstanding Clostridium difficile colitis on oral vancomycin. PLAN: To continue with IV antibiotic for his infected right lower extremity wounds and underlying osteomyelitis. Continue with wound care. Continue to monitor his blood sugar and adjust insulin as needed and I will contact the [employer], as the patient needs to go to a [facility], he needs wound care, IV antibiotic for at least another 4 weeks. ROSELYN MARRERO MD DR: LEEANNA/maximino JOB#: [id number] / [id number]
[2019-12-16 15:08] VITALS: BP 149/75
--- NOTE | 2019-12-16 16:52 | NUR ---
PATIENT REPORTED HAVING SORE THROAT AND IS UNABLE TO EAT BREAKFAST OR SWALLOW PO MEDS, PT REQUESTED ORAL SPRAY TO RELIEF PAIN. CHLORASEPTIC SPRAY ORDERED AND ADMINISTERED BY RN. PATIENT WAS ABLE TO SWALLOW MEDICATIONS AND EAT BREAKFAST, STATED THAT ORAL SPRAY EASED PAIN IN HIS THROAT.
[2019-12-16 19:47] VITALS: BP 168/67
[2019-12-16] MEDS: ACETAMINOPHEN 325 MG TABLET PO PRN (20:39)
[2019-12-16 23:32] VITALS: BP 112/54
[2019-12-17] MEDS: PIPERACILLIN/TAZOBACTAM 4.5 GM in IV NORMAL SALINE 50ML 50 ML IV SCH ×2 (03:47→12:39)
[2019-12-17] MEDS: IPRATRPIUM/ALBUTEROL 0.5/2.5MG 3 ML NEBU. NEB SCH (04:31)
[2019-12-17 06:32] VITALS: BP 139/68
[2019-12-17 07:00] VITALS: BP 148/72
[2019-12-17] MEDS: LACTOBACILLUS RHAMNOSUS GG 1 CAPSULE. PO SCH (09:42)
[2019-12-17] MEDS: CHOLECALCIFEROL (VITAMIN D3) 1,000 UNIT TABLET PO SCH (09:42)
[2019-12-17] MEDS: glipiZIDE 5 MG TABLET PO SCH (09:42)
[2019-12-17] MEDS: FERROUS SULFATE 325 MG TABLET. PO SCH (09:42)
[2019-12-17] MEDS: AMIODARONE HCL 200 MG TABLET PO SCH (09:43)
[2019-12-17] MEDS: POTASSIUM CHLORIDE 20 MEQ TABLET.ER. PO SCH (09:43)
[2019-12-17] MEDS: VANCOMYCIN 125 MG/2.5 ML ORAL SOLUTION. PO SCH ×2 (09:43→12:39)
[2019-12-17] MEDS: FUROSEMIDE 40 MG TABLET PO SCH (09:43)
[2019-12-17] MEDS: GABAPENTIN 300 MG CAPSULE. PO SCH ×2 (09:43→14:47)
[2019-12-17] MEDS: ASPIRIN 81 MG TAB.CHEW PO SCH (09:43)
[2019-12-17] MEDS: METOPROLOL TART IMMED RELEASE 50 MG TABLET PO SCH (09:43)
[2019-12-17] MEDS: LINEZOLID 600 MG TABLET PO SCH (09:46)
--- NOTE | 2019-12-17 09:48 | NUR ---
Order Verified Yes Consent signed Yes Previous PICC placement Yes Past Medical/Surgical history and current diagnosis reviewed Yes Patient Medical /Surgical History Related to PICC line placement None Special considerations for PICC line placement None PICC placement indication ferry terminal supervisor antibiotic usage, Name of PICC Nurse Violet Nelson RN
--- NOTE | 2019-12-17 09:50 | NUR ---
Procedure: Following complete explanation of the PICC procedure including the indications, risks, and potential complications, informed consent was obtained. The possibility for infection was discussed along with signs, symptoms, and prevention. All the patient's questions were answered. IV Device Protocol was used. Written and verbal patient education was provided. Hand hygiene performed. Standardized central line checklist was utilized. The patient was placed in the supine position, the right arm was prepped with chlorhexidine and patient draped with maximum sterile barrier. 1.5 mL 1% lidocaine was infiltrated into the skin to provide local anesthesia. A thorough assessment of right upper extremity completed. Using real-time ultrasound guidance and standardized micro puncture set, the basilic vein was punctured and a peel away sheath was placed using the modified Seldinger technique. A tip location device was used to ensure adequate catheter placement. The catheter was secured using a securement device and an antimicrobial patch was applied directly on the insertion site followed by a transparent dressing. The purple port withdrew blood and flushed without resistance. Patient tolerated the procedure without apparent complication. A single Lumen Power PICC placement successful and uncomplicated. Placement verified by EKG tip confirmation system with green p wave and joesph observed. Tip located in the low SVC per 3CG Complications:None
[2019-12-17 11:20] VITALS: BP 148/72
[2019-12-17] MEDS ORDERED: VANC125C3 PO (11:39)
[2019-12-17] MEDS ORDERED: PIPE4.5F2 IV (11:39)
[2019-12-17] MEDS ORDERED: LINE600T12 PO (11:39)
--- NOTE | 2019-12-17 13:34 | DS ---
DATE OF DISCHARGE: HOSPITAL COURSE: The patient is a 74-year-old male patient who was admitted on 12/08/2019 with increasing shortness of breath. He has also had fever with cough that is mostly dry. His white cell count was high at 15,000. His creatinine was up to 1.4. His urinalysis was unremarkable. He was requiring oxygen, which is a new finding for him. He was evaluated in the Emergency Room and his influenza A and respiratory syncytial virus by PCR was negative. A chest x-ray showed that he has pneumonia. He was also found to be in atrial fibrillation with rapid ventricular response. He was diagnosed with sepsis and pneumonia together with atrial fibrillation, rapid ventricular response. He was treated with IV Zosyn and vancomycin, was admitted for further evaluation and treatment. He was admitted to the ICU and was seen in consultation by the Cardiology team and apparently he was found to be in junctional tachycardia with no evidence of atrial fibrillation and was started on amiodarone to slow his heart rate. He was found to have dehisced wounds on the outer aspect of the right foot and x-ray of his right foot showed no bony destruction. Consider further evaluation with 3-phase bone scintigraphy after osteomyelitis of the persistent concern and we did actually a bone scan, which showed that there is increased tracer uptake on all 3 phases of the central, right and mid foot likely in the region of the second and third metatarsals. Findings are suspicious for osteomyelitis. There is increased tracer uptake only on the delayed phase localizing to the residual fourth and fifth metatarsals. This uptake may be postsurgical. We did start him on vancomycin and Zosyn as well as amiodarone and given the finding on the bone scan, we attempted to transfer him to [facility], but the insurance did not authorize this, although I personally firmly believe that he should be at [facility] and anyhow, all my attempts to convince the [facility] medical billing representative on [id number] review has failed and basically decision was made to transfer him back to [facility] to continue with IV Zosyn as well as Zyvox together with oral vancomycin for his C. diff colitis. PHYSICAL EXAMINATION: GENERAL: When I saw him today, he looked well and was clearly in no apparent respiratory distress. He was slightly pale, but no jaundice, cyanosis or thyromegaly. No jugular venous distention. No lower limb edema. VITAL SIGNS: His heart rate was 61, blood pressure was 139/68, temperature 97.5, respiratory rate 20 and oxygen saturation was 92% on room air. HEAD, EYES, EARS, NOSE AND THROAT: Showed normocephalic, atraumatic. NECK: Supple. HEART: Showed normal first and second heart sounds. No gallop or murmur. CHEST: Clear to auscultation. No crepitation or rhonchi. ABDOMEN: Distended, soft, nontender. NEUROLOGIC: He was awake, alert, responding appropriately. All cranial nerves are intact. He moves all extremities without difficulty. He has wounds on the outer aspect of the right foot is covered with dressing. His intake over the last 24 hours was 1580, output was 400. LABORATORY WORK: This morning showed his most recent white cell count was 12,800, hemoglobin 9.7, hematocrit 30, MCV 88 and platelet count 248,000. His serum sodium was 138, potassium 3.9, chloride 104, bicarbonate 25, anion gap of 9, BUN 17, creatinine 1.7, estimated GFR was 39 mL per minute. His glucose was 113, calcium was 8.4, magnesium was 1.7. DISCHARGE MEDICATIONS: He was discharged to go back to [facility] to continue on throat lozenges for Chloraseptic 1 spray every 2 hours, furosemide 40 mg p.o. daily, metoprolol tartrate 50 mg p.o. b.i.d., potassium chloride 20 mEq twice a day, vancomycin 125 mg 4 times a day for 7 more days, gabapentin 300 mg 3 times a day, linezolid 600 mg twice a day, vitamin D 2000 International Unit once a day, glipizide 2.5 mg once a day, ferrous sulfate 325 mg twice a day, aspirin 81 mg once a day, acetaminophen 650 mg every 6 hours, amiodarone 200 mg twice a day, lactobacillus rhamnosus 1 capsule twice a day, Zosyn 4.5 grams IV every 8 hours, DuoNeb in 3 mL by nebulizer 4 times a day, ondansetron 4 mg IV every 8 hours. FINAL DISCHARGE DIAGNOSES: 1. Junctional tachycardia with no evidence of atrial fibrillation. The patient was started on amiodarone. Heart rate is well controlled. 2. Acute respiratory failure secondary to; A. Acute on chronic diastolic congestive heart failure. B. Chronic obstructive pulmonary disease exacerbation. C. Right lower lobe pneumonia. 3. The patient has an echocardiogram done at [facility] recently showing preserved left ventricular systolic function with mild elevation of troponin, ____ was 0.140, most likely type 2 demand ischemia. 4. Coronary artery disease, status post coronary artery bypass graft surgery. 5. Hypertension, well controlled. 6. Hyperlipidemia, on statin. 7. Type 2 diabetes mellitus, seems to be reasonably controlled. 8. Acute on chronic kidney injury. His creatinine has stabilized around 1.7 mg/dL. 9. Clostridium difficile colitis, which he is on vancomycin and seemed to be clinically improving. 10. Hypokalemia, resolved. ROSELYN MARRERO MD DR: LEEANNA/maximino JOB#: [id number] / [id number]
== END 2019-12-17 15:27 | DRG 871 ==
LOC: ER 03:07 → 1 SOUTH 04:46 → ICU 04:46 → UNDOADMIN 04:46 → 1 SOUTH 12-13 15:57
PROVIDERS: ADMIT Internal Medicine; ATTEND Internal Medicine
PROC: 02HV33Z Insertion of Infusion Device into Superior Vena Cava, Percutaneous Approach (ICD-10-PCS; principal; 2019-12-17)
PROC: B548ZZA Ultrasonography of Superior Vena Cava, Guidance (ICD-10-PCS; 2019-12-17)
DX: A41.9 Sepsis, unspecified organism (principal); J15.6 Pneumonia due to other Gram-negative bacteria; I50.33 Acute on chronic diastolic (congestive) heart failure; J96.21 Acute and chronic respiratory failure with hypoxia; J44.0 Chronic obstructive pulmonary disease with (acute) lower respiratory infection; I47.1 Supraventricular tachycardia; L03.115 Cellulitis of right lower limb; J44.1 Chronic obstructive pulmonary disease with (acute) exacerbation; A04.72 Enterocolitis due to Clostridium difficile, not specified as recurrent; M86.171 Other acute osteomyelitis, right ankle and foot; I13.0 Hypertensive heart and chronic kidney disease with heart failure and stage 1 through stage 4 chronic kidney disease, or unspecified chronic kidney disease; N17.9 Acute kidney failure, unspecified; I24.8 Other forms of acute ischemic heart disease; I48.91 Unspecified atrial fibrillation; E78.5 Hyperlipidemia, unspecified; N18.3 Chronic kidney disease, stage 3 (moderate); E11.22 Type 2 diabetes mellitus with diabetic chronic kidney disease; E11.51 Type 2 diabetes mellitus with diabetic peripheral angiopathy without gangrene; E11.69 Type 2 diabetes mellitus with other specified complication; E87.6 Hypokalemia; E11.42 Type 2 diabetes mellitus with diabetic polyneuropathy; I25.10 Atherosclerotic heart disease of native coronary artery without angina pectoris; Z95.1 Presence of aortocoronary bypass graft; Z87.891 Personal history of nicotine dependence; Z85.038 Personal history of other malignant neoplasm of large intestine; Z80.52 Family history of malignant neoplasm of bladder; I25.2 Old myocardial infarction
CPT/HCPCS: 36415; 36569; 71045; 71046; 73620; 78315; 80048; 80053; 82274; 82947; 83605; 83735; 83880; 84484; 85025; 85027; 87040; 87493; 93005; 93971; 94640; 94760; 96361; 96365; 96375; A9503; J0282; J0610; J1160; J1940; J2020; J2405; J2543; J3370; J3475; J7040; Q0163; 97110; 97530; 97535; 99285-25; J7030